=== PATIENT | female | born 1965 | race Caucasian/White ===

== ENCOUNTER 2021-12-04 22:29 | Emergency (ER) | payer OTHER, SELFPAY ==
[2021-12-04 22:41] VITALS: PULSE 97; RESP 20; TEMP 36.6; O2SAT 95; BMI 34.5
[2021-12-05] MEDS: ONDANSETRON ODT 4 MG TAB 8 MG PO (00:35)
[2021-12-05 01:41] VITALS: PULSE 92; RESP 18; O2SAT 98
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
== END 2021-12-05 02:14 ==
PROVIDERS: Emergency Provider Family Medicine; PCP Family Medicine
DX: M79.5 Residual foreign body in soft tissue (principal); W39.XXXA Discharge of firework, initial encounter
CPT/HCPCS: 96372; 99282; 99283; A9270

== ENCOUNTER 2022-02-20 10:16 | Outpatient (CLI) | payer OTHER, SELFPAY ==
--- NOTE | 2022-02-20 10:15 | CRLHL7_ITS ---
For Patients: As a result of the Century Cures Act, medical imaging exams and procedure reports are released immediately into your electronic medical record. You may view this report before your referring provider. If you have questions, please contact your health care provider. INDICATION : Cervical spinal canal stenosis. TECHNIQUE : Cervical spine MRI without contrast. The following sequences were obtained: Sagittal T1, T2 weighted and STIR sequences. Axial T2-weighted and gradient sequences. COMPARISON: COMPARISONCervical spine MRI from 07/11/2017. FINDINGS: Straightening of the typical cervical lordosis. No recent compression fracture or marrow replacing process. Posterior fossa josh cisterna magna. Cervical cord signal is normal. No extraspinal soft tissue abnormalities. Discs/Endplates: At C5-6, moderate disc height loss and disc desiccation. Mild disc degeneration elsewhere. Findings at individual levels as follows: Craniocervical junction: Alignment is maintained. C2-C3: Shallow disc osteophyte complex flattens the ventral thecal sac and contacts the ventral cord. Mild spinal canal stenosis. Bilateral uncovertebral and facet arthrosis contributes to mild bilateral foraminal stenosis. Right-sided facet joint effusion/diastasis and subchondral STIR hyperintensity, reflecting active degenerative synovitis bed C3-C4: 3 millimeters anterolisthesis. Shallow disc osteophyte complex flattens the ventral thecal sac with mild spinal canal stenosis. Bilateral uncovertebral and facet arthrosis with mild right and moderate left neural foraminal stenosis. C4-C5: 3 millimeters anterolisthesis. No spinal canal stenosis. Bilateral uncovertebral and facet arthrosis contributes to mild left and advanced right neural foraminal stenosis with impingement of the exiting right C5 nerve root. C5-C6: Shallow disc osteophyte complex flattens the ventral thecal sac without spinal canal stenosis. Bilateral uncovertebral and facet arthrosis contributes to moderate right and moderately advanced left neural foraminal stenosis with impingement of the exiting left C6 nerve root. C6-C7: Shallow disc osteophyte complex flattens the ventral thecal sac without spinal canal stenosis. Bilateral uncovertebral and facet arthrosis contributes to minimal right and mild left neural foraminal stenosis. C7-T1: No spinal canal or neural foraminal stenosis. Imaged upper thoracic levels: No spinal canal or neural foraminal stenosis. IMPRESSION: 1. At C2-3, new right-sided active degenerative synovitis. 2. At C3-4, moderate left neural foraminal stenosis. Stable. 3. At C4-5, advanced right neural foraminal stenosis with impingement of the exiting right C5 nerve root. Stable. 4. At C5-6, moderate right and moderately advanced left neural foraminal stenosis with impingement of the exiting left C6 nerve root. Stable. 5. No high-grade spinal canal stenosis or extrinsic cord deformity at any cervical level. Cervical cord signal is normal. Dictated by Rob Arce MD @ 02/20/2022 7:08:57 PM (Electronically Signed)
== END 2022-02-20 10:17 | disposition home or self-care (01) ==
LOC: MRI 10:19
PROVIDERS: PCP Family Medicine; Visit Provider Family Medicine
DX: M48.02 Spinal stenosis, cervical region (principal); M47.812 Spondylosis without myelopathy or radiculopathy, cervical region
CPT/HCPCS: 72141

== ENCOUNTER 2022-05-09 13:09 | Outpatient (CLI) | payer OTHER, SELFPAY ==
--- NOTE | 2022-05-09 13:00 | MR_ITS ---
[address] [address] Phone:?[phone] Fax:?[phone] Referring Physician Information: Breezy Hodgson M.D. [address] [facility] [address] Phone:?[phone] Fax:?[phone] Patient:Aleksandra Bernard D.O.B:?1965 Sex:?Female Phone:?[phone] [facility] MRN:?[id number] Exam Date:?05/09/2022 ? EXAM: MRI of the RIGHT KNEE, without contrast CLINICAL: Right knee pain. Evaluate meniscus. COMPARISONS: MRI 03/16/2020. TECHNICAL: MR sequences of the right knee: sagittals: PD, PDFS coronals: PD, T2FS axials: PD, PDFS SEDATION: None. CONTRAST: None. FINDINGS: Ligaments: ACL: Intact ACL anteromedial and posterolateral bundles, without sprain or tear. PCL: Intact PCL, without acute or chronic injury. MCL: Minimal soft tissue edema about the MCL. Minimal focal partial interstitial tearing of the anterior mid superficial MCL on axial series 4 image 20. MCL otherwise appears intact. LCL: Intact LCL, without injury. Posterolateral corner: Popliteus, biceps femoris, iliotibial band, and the popliteofibular ligament appear intact. Posteromedial corner: There is tendinosis and partial tearing of the distal semimembranosus tendon. The pes anserine tendons and posterior oblique ligament appear intact. Extensor mechanism: Patellar tendon: Intact, without tendinopathy. Quadriceps tendon: Intact, without tendinopathy. Retinacula: Medial and lateral retinacula are intact. Fat pads: Unremarkable infrapatellar Hoffa's, quadriceps and prefemoral fat pads. Patellofemoral joint: Patella: Patellar chondromalacia appears similar to prior exam. No new chondral defects. Trochlea: Trochlear chondromalacia appears similar to prior examination. No new chondral defects. Medial compartment: Medial meniscus: High-grade complex tearing/disruption of the posterior root fibers on sagittal series 9 image 17-18 and coronal series 8 image 23-24. This is new compared to prior exam. Degenerative signal changes noted within the posterior horn. There is approximately 2-3 mm of medial extrusion of peripheral body segment medial meniscus into the medial gutter. Medial cartilage: Chondromalacia involving the posterior nonweightbearing medial femoral condyle appears similar to prior exam. No new chondral defects. Lateral compartment: Lateral meniscus: No evidence of discrete meniscal tear or meniscal displacement. Lateral cartilage: No significant chondromalacia. Knee joint: Effusion: Small right knee effusion. Intra-articular bodies:?No convincing bodies identified. Popliteal cyst: None. Bones: No suspicious bone marrow signal alteration or fracture line. IMPRESSION: 1. High-grade complex tearing/disruption of the posterior root fibers medial meniscus with associated mild extrusion of the peripheral body segment medial meniscus into the medial gutter. 2. Minimal soft tissue edema about the MCL with minimal focal partial tearing of the anterior mid superficial MCL. 3. Tendinosis and partial tearing of the distal semimembranosus tendon. 4. Small joint effusion. JCZ Electronically signed on 05/10/2022 8:16:00 AM by Catracho Sellers D.O.
== END 2022-05-09 13:10 | disposition home or self-care (01) ==
LOC: MRI 13:09
PROVIDERS: PCP Family Medicine; Visit Provider Family Medicine
DX: M25.561 Pain in right knee (principal); M23.221 Derangement of posterior horn of medial meniscus due to old tear or injury, right knee; M25.461 Effusion, right knee; S83.411A Sprain of medial collateral ligament of right knee, initial encounter; S86.811A Strain of other muscle(s) and tendon(s) at lower leg level, right leg, initial encounter
CPT/HCPCS: 73721

== ENCOUNTER 2022-07-04 06:34 | Day surgery (SDC) | payer OTHER, SELFPAY ==
[2022-07-04] VITALS (12 sets, daily range): BP systolic 88–134; BP diastolic 64–81; PULSE 60–74; RESP 16; TEMP 36.2–36.9; O2SAT 94–100; BMI 36.1
--- NOTE | 2022-07-04 06:47 | SUR.PREOP ---
home covid negatve
[2022-07-04] MEDS: LACTATED RINGERS 1000 ML 1,000 ML 100 ML IV (07:05)
[2022-07-04] MEDS: SODIUM CHLORIDE 0.9 % (FLUSH) 10 ML SYRINGE IVF (07:05)
[2022-07-04] MEDS: CEFAZOLIN 2 GM in 0.9 % SODIUM CHLORIDE Mini-bag 100 ML IVPB (07:58)
--- NOTE | 2022-07-04 08:32 | PM.ORPRC ---
Procedure Note Date of procedure: 07/04/22 Procedure: PREOPERATIVE DIAGNOSIS: 1. Right knee medial meniscus tear POSTOPERATIVE DIAGNOSIS: 1. Right knee medial meniscus tear, posterior root region full-thickness radial tear with fibrosis 2. 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 Small region grade 4 chondromalacia trochlear groove and grade 3 chondromalacia patella median ridge PROCEDURE: 1. Right knee arthroscopic partial medial meniscectomy SURGEON: Dirk Tee M.D. SENIOR BUSINESS BROKER: Edgar Crowe PA-C. Of note, an news production assistant was critical for this case to aid in patient positioning, knee manipulation, instrument exchange, and closure. ANESTHESIA: Spinal EBL: 2ml TOURNIQUET: 25 minutes at 300 torr COMPLICATIONS: None evident INDICATIONS: The patient is a pleasant 57-year-old female who has experienced right knee pain particularly with any twisting or turning. Physical exam was concerning for medial meniscus tear, this was confirmed on MRI. Additionally, attempted nonoperative management has been tried, and failed. Thus, surgery was recommended. FINDINGS: Grade 3 chondromalacia broadly through the medial femoral condyle weight-bearing portion and further anterior. Small region grade 4 chondromalacia trochlear groove (3 x 6 mm) and grade 3 chondromalacia patella median ridge. No loose bodies evident. Posterior root medial meniscus tear with instability of the root and fibrotic tissue consistent with chronicity. DESCRIPTION OF PROCEDURE: After a thorough discussion of risks, benefits, and alternatives, the patient was brought to the operating room and placed upon the operating table. Induction of anesthesia was undertaken as previously noted. 2g iv Ancef was administered within 1 hr of incision preoperatively. Appropriate time-out was performed identifying proper patient, site, and procedure. The right lower extremity was prepped and draped in the appropriate sterile fashion using ChloraPrep. The limb was exsanguinated and tourniquet inflated. Anterolateral and anteromedial portals were established with an 11 blade, and a diagnostic arthroscopy was performed. This identified the findings as noted above. Following the diagnostic arthroscopy, and given the arthritic changes and the fibrotic nature/chronicity to the meniscus tear, a partial medial menisectomy was performed with the combination of basket forceps and a motorized shaver. Following this, the meniscus was re-probed and found to be stable. Approximately 25 % of the overall meniscus required resection. At this stage, the shaver was reinserted into the suprapatellar pouch and all remaining meniscal debris was evacuated. Instruments were removed, excess fluid was drained, and closure performed with 4-0 Monocryl with Steri-Strips. Dressings were applied, the tourniquet deflated, and the patient was awoken from anesthesia and transferred to the PACU in stable condition. PLAN: 1. Weightbear as tolerated operative extremity. Crutch / walker ambulation assistance PRN. 2. Ice, acetominophen and/or ibuprofen, and [place] for pain as needed. 3. Knee range of motion and quad sets/straight leg raise regularly 4. Follow up with PA visit in 1-2 weeks for a wound check and possibly to initiate physical therapy.
--- NOTE | 2022-07-04 08:33 | W.ANESCHARGE ---
Anesthesia Charges Start Date/Time Anesthesia Start Date: 07/04/22 Anesthesia Start Time: 07:43 Stop Date/Time Anesthesia Stop Date: 07/04/22 Anesthesia Stop Time: 08:47 Summary Emergency: No
[2022-07-04] MEDS: ROPIVACAINE 0.5% 30 ML 150 MG INJECTION (08:35)
--- NOTE | 2022-07-04 08:55 | W.ANESCHARGE ---
Anesthesia Charges Start Date/Time Anesthesia Start Date: 07/04/22 Anesthesia Start Time: 07:43 Stop Date/Time Anesthesia Stop Date: 07/04/22 Anesthesia Stop Time: 08:47 Summary Emergency: No
== END 2022-07-04 10:15 | disposition home or self-care (01) ==
PROVIDERS: PCP Family Medicine; Visit Provider Orthopaedic Surgery Sports Medicine
PROC: (CPT 29870; principal; 2022-07-04 07:45)
DX: S83.241A Other tear of medial meniscus, current injury, right knee, initial encounter (principal); M94.261 Chondromalacia, right knee
CPT/HCPCS: 29881; 01400; J0690; J1200; J2250; J2370; J2400; J2405; J2704; J2795; J3010; J7120

== ENCOUNTER 2022-08-09 10:30 | Outpatient (RCR) | payer OTHER, SELFPAY | END 2022-08-09 11:30 | disposition home or self-care (01) | PROVIDERS: PCP Family Medicine; Visit Provider Physician Assistant Surgical | DX: R26.89 Other abnormalities of gait and mobility (principal); M25.551 Pain in right hip; Z98.890 Other specified postprocedural states; M79.7 Fibromyalgia; Z51.89 Encounter for other specified aftercare; G62.9 Polyneuropathy, unspecified | CPT/HCPCS: 97110; 97112; 97140; 97162 ==

== ENCOUNTER 2022-11-06 06:37 | Outpatient (CLI) | payer OTHER, SELFPAY | END 2022-11-06 06:38 | disposition home or self-care (01) | LOC: RAD 06:38 | PROVIDERS: PCP Family Medicine; Visit Provider Family Medicine | DX: M25.551 Pain in right hip (principal); M25.851 Other specified joint disorders, right hip | CPT/HCPCS: 20610; 77002; J0702; J2250; J3010; Q9966 ==

== ENCOUNTER 2022-11-29 10:12 | Outpatient (CLI) | payer OTHER, SELFPAY ==
--- NOTE | 2022-11-29 10:15 | CRLHL7_ITS ---
For Patients: As a result of the Century Cures Act, medical imaging exams and procedure reports are released immediately into your electronic medical record. You may view this report before your referring provider. If you have questions, please contact your health care provider. INDICATION: Chronic heel pain. COMPARISON: March 04, 2019. TECHNIQUE: Axial and coronal PD and PD fat sat and sagittal T1 and STIR left ankle sequences. FINDINGS: Tendons: Periarticular tendons have normal caliber and signal with no subluxation or tenosynovitis. - Ligaments: Intact syndesmotic ligaments and lateral ankle ligaments. Normal deltoid. No sinus tarsus syndrome. - Ankle joint: Uniform cartilage. Physiologic fluid. No osteochondral injury. - Bones and soft tissues: Plantar fascia thickness and signal is within normal limits. No edema in the calcaneus. Anatomic alignment of the talonavicular and calcaneocuboid trocar joint. No soft tissue mass or fluid collection. IMPRESSION: No acute finding or significant chronic finding to account for heel pain. Dictated by Breezy Parrish MD @ 11/30/2022 3:33:10 PM (Electronically Signed)
== END 2022-11-29 10:13 | disposition home or self-care (01) ==
PROVIDERS: PCP Family Medicine; Visit Provider Family Medicine
DX: M72.2 Plantar fascial fibromatosis (principal); M79.672 Pain in left foot
CPT/HCPCS: 73721

== ENCOUNTER 2023-01-15 08:30 | Outpatient (RCR) | payer OTHER, SELFPAY | END 2023-05-15 23:59 | disposition home or self-care (01) | PROVIDERS: PCP Family Medicine; Visit Provider Family Medicine | DX: M77.02 Medial epicondylitis, left elbow (principal); M25.522 Pain in left elbow; Z51.89 Encounter for other specified aftercare | CPT/HCPCS: 97033; 97110; 97140; 97161; 97162 ==

== ENCOUNTER 2023-11-19 09:46 | Outpatient (CLI) | payer OTHER, SELFPAY ==
--- OUTSIDE RECORDS SUMMARY | 2023-11-19 09:48 | XMS_ITS | Clinical Summary ---
Author Organization [facility] Address [place], [place] [address] Care Team Providers Care Bindery Chief Name Role Phone Anca Gerard DO Primary Care Provider Allergies Active Allergy Reactions Criticality Noted Date Comments Adhesive Tape-Silicones Rash 02/14/2017 Diazepam Agitation 06/12/2013 Erythromycin GI Upset 08/22/2006 Hydromorphone Confusion 02/15/2017 Very sedating Lidocaine Itching Low 11/13/2018 Local swelling and itching after injection of lidocaine for local anesthetic for procedure. Nitrofurantoin Nausea And Vomiting 09/21/2016 Penicillins Hives 08/22/2006 Tolerated keflex Oxycodone-Acetaminophen Nausea And Vomiting Tramadol Nausea And Vomiting 06/12/2013 Trazodone Insomnia 06/12/2013 Sertraline Nausea Only 08/22/2006 Medications Medication Sig Dispensed Refills Start Date End Date Status cyclobenzaprine (FLEXERIL) 10 mg tabletIndications: Lumbosacral spondylosis without myelopathy Take 1 tablet by mouth 3 times daily if needed for Muscle Spasm. 60 tablet 9 Active calcium carbonate-vitamin D3, 600 mg-400 unit, 600 mg(1,500mg) -400 unit tablet Take 1 tablet by mouth 2 times daily with meals. 200 tablet 4 9 Active CaneIndications:Sara mbar radicular pain,Chronic pain of right knee Cane for supportive walking, length of use 99 months 1 Device 9 Active nebulizer accessories kitIndications:Exa cerbation of asthma, unspecified asthma severity, unspecified whether persistent For home use. Length of need: as needed going forward 1 Kit 0 Active ammonium lactate 12% topical (LACHYDRIN) 12 % lotionIndications: Dry skin Apply topically to affected area(s) 2 times daily. 450 g 0 Active ondansetron (Zofran ODT) 4 mg disintegrating tabletIndications: Nausea Place 1 Tablet (4 mg) on the tongue every 8 hours if needed for Nausea/Vomiting. 30 Tablet 1 Active estradioL (Estrace) 0.01% (0.1 mg/g) vaginal creamIndications:R ecurrent UTI (urinary tract infection) Insert 0.5 g into the vagina at bedtime. Insert 0.5g of cream into vaginal introitus at bedtime nightly for two weeks followed by twice weekly 42.5 g 1 2 Active clotrimazole (LOTRIMIN) 1 % creamIndications:Y east infection of the skin APPLY TO AFFECTED AREAS BY TOPICAL ROUTE TWICE DAILY NEEDED 135 g 1 2 Active durable medical equipment (DME)Indications:P ain of meniscus of right knee,Effusion of right knee Reddie Brace, [phone] 1 Each 3 Active magnesium oxide,aspartate,ci tr 400 mg magnesium cap Take 400 mg by mouth. 0 3 Active durable medical equipment (DME)Indications:P lantar fasciitis of left foot,Chronic pain of left heel Airselect, Standard, medium [id number] Length of use: 99 months 0 3 Active LORazepam (ATIVAN) 1 mg tabletIndications: Anxiety due to invasive procedure Take 1 Tablet (1 mg) by mouth one time for 1 dose. 1 Tablet 3 Active cholecalciferol (VITAMIN D3) 2,000 unit capsuleIndications :Lumbar radicular pain TAKE ONE CAPSULE BY MOUTH ONE TIME DAILY 90 Capsule 1 3 Active albuterol HFA (Ventolin HFA) 90 mcg/actuation inhalerIndications :Mild intermittent asthma without complication Inhale 2 Puffs by mouth 4 times daily if needed for Wheezing. 18 g 1 3 Active albuterol (PROVENTIL) 0.083 % neb solutionIndication s:Wheeze Inhale 3 mL (2.5 mg) via a nebulizer every 4 hours if needed for Wheezing. 360 mL 1 3 Active cyanocobalamin (VITAMIN B12) 1,000 mcg tabletIndications: Small fiber neuropathy TAKE ONE TABLET BY MOUTH ONE TIME DAILY 90 Tablet 2 4 Active benzonatate (Tessalon Perles) 100 mg capsuleIndications :Bronchitis with bronchospasm Take 1 Capsule (100 mg) by mouth 3 times daily if needed for Cough. 30 Capsule 4 Active tiZANidine (ZANAFLEX) 4 mg tabletIndications: Lumbar radicular pain TAKE ONE TABLET BY MOUTH EVERY SIX HOURS NEEDED FOR MUSCLE SPASM 180 Tablet 4 Active pregabalin (LYRICA) 300 mg capsuleIndications :Small fiber neuropathy TAKE ONE CAPSULE BY MOUTH TWICE DAILY 60 Capsule 5 4 Active polyethylene glycoL (MIRALAX) 17 gram/scoop powderIndications: Chronic constipation Mix 1 scoop (17 g) in liquid then take by mouth once daily if needed for Constipation. 1530 g 1 4 Active HYDROcodone-acetam inophen (5-325 mg/tablet)Indicati ons:DDD (degenerative disc disease), lumbar,Lumbosacral spondylosis without myelopathy,Chronic pain disorder,Controlle d substance agreement signed Take 1 Tablet by mouth 3 times daily if needed for Pain. 90 Tablet 4 Active celecoxib (CELEBREX) 100 mg capsuleIndications :Trigger finger of right thumb,Chronic pain disorder,DDD (degenerative disc disease), lumbar Take 1 Capsule (100 mg) by mouth two times daily with meals. 60 Capsule 1 4 Active omeprazole (PRILOSEC) 20 mg Delayed-Release capsuleIndications :Gastritis, presence of bleeding unspecified, unspecified chronicity, unspecified gastritis type Take 1 Capsule (20 mg) by mouth two times daily before meals. 180 Capsule 1 4 Active blood-glucose meterIndications:N ew onset type 2 diabetes mellitus (HC) Dispense meter covered by pts insurance. 1 Each 4 Active blood sugar diagnostic (Blood Glucose Test) stripIndications:N ew onset type 2 diabetes mellitus (HC) Test 2 times per day. 100 Each 12 4 Active lancetsIndications :New onset type 2 diabetes mellitus (HC) As directed. Test 2 times per day. 100 Each 12 4 Active semaglutide (Ozempic) 2 mg/3 mL penIndications:New onset type 2 diabetes mellitus (HC) Inject 0.375 mL (0.25 mg) subcutaneous once weekly for 28 days, THEN 0.75 mL (0.5 mg) once weekly for 28 days. 6 mL 4 12/09/19 24 Active semaglutide (OZEMPIC) 1 mg/dose (4 mg/3 mL) penIndications:New onset type 2 diabetes mellitus (HC) Inject 1 mg subcutaneous once weekly for 28 days. 3 mL 4 01/06/20 24 Active diclofenac 1.3 % (FLECTOR) 1.3 % patchIndications:C hronic pain disorder,Small fiber neuropathy,Right hip impingement syndrome,Chronic right hip pain Apply 1 Patch on dry, clean, hairless skin 2 times daily if needed for Pain. Patient failed injection, naproxen and meloxicam with GASTROINTESTINAL bleed. SMK 60 Patch 11 4 Active predniSONE (DELTASONE) 20 mg tabletIndications: Right hand pain Take 1 Tablet (20 mg) by mouth two times daily with meals. 10 Tablet 4 Active azithromycin (Zithromax Z-Lawrence) 250 mg tabletIndications: Acute non-recurrent frontal sinusitis Take 500 mg (2 tabs) by mouth on day 1, then 250 mg (1 tab) daily for days 2-5. 6 Tablet 4 11/08/19 24 Discontin ued(*Med complete/ Regimen complete/ Level of care change) Active Problems Problem Noted Date Diagnosed Date Acute gastric ulcer without hemorrhage or perfor ation 03/17/2019 Overview: EGD 03/2019 gastric ulcer due to Nsdaids, No repeat EGD needed Alcohol use disorder, mild, in sustained remissi on 11/13/2018 Chronic bilateral low back pain without sciatica 11/07/2018 Migraine without aura and wi thout status migrainosus, not intractable 09/17/2018 DDD (degenerative disc disease), lumbar 09/18/19 19 Lumbar spondylosis 09/17/2018 Arthropathy of cervical facet joint 09/17/2018 Controlled substance agreement signed 10/21/2017 Overview: Prescriber: Dr. Breezy Hodgson, [facility] Anca Garrettkonrad, DO Ok to fill at same amount/dose/frequency in my absence. Controlled substance agreement: 10/21/17 resigned. [employer] query on 04/17/18 was acceptable. Last UDS on 10/21/17 status post right hip arthro scopic labral repair with femoral and acetabular osteoplasty procedure on 02/15/[address] Hatch. 02/26/2017 Obesity (BMI 30-39.9) 02/11/2017 Tobacco use disorder 09/23/2016 Small fiber neuropathy 04/05/2016 Overview: Confirmed on muscle biopsy through [facility]. Incontinence 06/15/2015 Somatization disorder 06/13/2013 Mood disorder due to a general medical condition 06/12/2013 Chronic pain disorder 06/12/2013 Recurrent major depressive disorder, in partial remission 06/12/2013 Adjustment disorder with depressed mood 06/12/19 14 Insomnia 06/12/2013 Plantar fasciitis 06/12/2013 CTS (carpal tunnel syndrome) 06/12/2013 Lumbar facet arthropathy 01/18/2010 Fibromyalgia 01/18/2010 Unspecified asthma(493.90) 08/22/2006 Overview: Summer Other acne 08/22/2006 Tear of right acetabular labrum Resolved Problems Problem Noted Date Diagnosed Date Resolved Date Abnormal maternal glucose to lerance, complicating , childbirth, or the puerperium, unspecified as to episode of care 08/22/2006 01/15/2015 Encounters Date Type Department Care Team Description 11/08/2023 8:20 AM CDT Office Visit [facility] [address] [facility] [address] Breezy Hodgson MD Musculoskeletal Problem (Right Trigger Thumb) 11/08/2023 Travel 10/14/2023 1:20 PM CDT Office Visit [facility] [address] [address] Breezy Hodgson MD Musculoskeletal Problem (Consult right trigger thumb/Follow up back pain/Follow up right hip) 10/14/2023 9:50 AM CDT Office Visit [facility] [address] [place] [address] Anca Gerard DO Diabetes 10/14/2023 Telephone [facility] [address] [place] [address] Breezy Hodgson MD FORMULARY 10/14/2023 Orders Only [facility] [address] [place] [address] Chiara Donaldson PA <No scans attached> 10/14/2023 Travel 10/10/2023 Orders Only [facility] [address] [place] [address] Anca Gerard DO <No scans attached> 10/09/[address] [phone] Kelli Bahena, AMIRAH Referral (/) 10/08/2023 Telephone [facility] [address] [place] [address] Anca Gerard DO Lab (hematology request. factor v/) 10/04/2023 Orders Only [facility] [address] [place] [address] Anca Gerard DO <No scans attached> 10/02/2023 3:55 PM CDT Office Visit [facility] [address] [place] [address] Anca Gerard DO Back Pain; Medication Management (declined voltaren patches/can't take meloxicam) 10/02/2023 Travel 09/30/2023 Refill [facility] [address] [place] [address] Anca Gerard DO Refill Request (Omeprazole) 09/30/2023 Orders Only [facility] [address] [place] [address] Anca Gerard DO <No scans attached> 09/27/2023 2:30 PM CDT Orders Only [facility] [address] [place] [address] Lab, [place] [facility] 09/27/2023 2:15 PM CDT Ancillary Procedure [facility] [address] [place] [address] 09/27/2023 1:40 PM CDT Office Visit [facility] [address] [place] [address] Chiara Donaldson PA Concerns 09/27/2023 Travel 09/26/2023 Refill [facility] [address] [place] [address] Anca Gerard DO Refill Request (NORCO ORAL TABLET 5-325 MG) 09/06/2023 Refill [facility] [address] [place] [address] Anca Gerard DO Refill Request (Polyethylene Glycol 3350 Oral Powder 17gm/scoop) 09/05/2023 Telephone [facility] [address] [place] [address] Breezy Hodgson MD Prior Authorization (diclofenac 1.3 % (FLECTOR) 1.3 % patch (DENIED)) 08/28/2023 Refill [facility] [address] [place] [address] Breezy Hodgson MD Refill Request (Pregabalin, Diclofenac 1.3 %) from Last 3 Months Immunizations Name Administration Dates Next Due Td (Age >=7 Years) 09/25/2017 Td, Preservative Free (age >= 7 Years) 8 Family History Medical History Relation Name Comments Alcohol/Drug Brother 2 GI Disease Brother 3 diverticulitis Allergies Daughter 2 Asthma Daughter 3 Psychiatric illness Daughter 4 Borderli ne Personality Disorder Arthritis Father Diabetes Father GI Disease Father diverticulitis Heart Disease Father Asthma Grandchild 2 Cancer-breast Maternal Aunt Heart Disease Maternal Grandfather Hypertension Mother Other Mother migaines Psychiatric illness Mother bipolar Allergies Son 2 Psychiatric illness Son 3 Tourette 's Relation Name Status Comments Brother 1 Alive x2 Brother 2 Brother 3 Daughter 1 Alive x3 Daughter 2 Daughter 3 Daughter 4 Father Alive Grandchild 1 Alive x4 Grandchild 2 Maternal Aunt Maternal Grandfather Maternal Grandmother Mother Alive Paternal Grandfather Paternal Grandmother Son 1 Alive x2 Son 2 Son 3 Social History Tobacco Use Types Packs/Day Years Used Date Smoking Tobacco: Every Day Cigarettes 1 42.5 Started: 1981 Smokeless Tobacco: Never Tobacco Cessation:Ready to Q uit: No; Counseling Given: No Alcohol Use Standard Drinks/Week Comments Not Currently 0 (1 standard drink = 0.6 oz pur e alcohol) rare PHQ-2 Answer Date Recorded PHQ-2 TOTAL SCORE 1 04/29/2023 Social Connections Answer Date Recorded Frequency of Communication with Friends and Fami ly 0 06/07/2023 Financial Resource Strain Answer Date R ecorded Difficulty of Paying Living Expenses 3 06/07/2023 Difficulty of Paying Living Expenses Not on file 06/07/2023 Food Insecurity Answer Date Recorded Worried About Running Out of Food in the Last Ye ar 1 06/07/2023 Transportation Needs Answer Date Record ed Lack of Transportation (Medical) 1 06/07/2023 Housing Stability Answer Date Recorded Unable to Pay for Housing in the Last Year 1 06/07/2023 Sex and Gender Information Value Date Recorded Sex Assigned at Not on file Gender Identity Not on file Sexual Orientation Not on file Obstetrics History Para Term AB IAB SAB Ectopic Multiple Livin g Live Births 6 5 5 5 Date Outcome GA Total Labor Labor/2nd/3rd Weight Sex Type Anes PTL Linda A1 A5 Name Clin Term Term Term Term Term Last Filed Vital Signs Vital Sign Reading Time Taken Comments Blood Pressure 125/85 11/08/2023 8:30 AM CDT Pulse 81 11/08/2023 8:30 AM CDT Temperature 36.4 ??C (97.6 ??F) 11/08/2023 8:30 AM CD T Respiratory Rate 16 04/02/2022 8:52 AM CDT Oxygen Saturation 96% 11/08/2023 8:30 AM CDT Inhaled Oxygen Concentration - - Weight 93.1 kg (205 lb 4.8 oz) 11/08/2023 8:30 A M CDT Height 159.2 cm (5' 2.68) 04/29/2023 10:07 AM Joel IRBY Body Mass Index 36.74 04/29/2023 10:07 AM JOB SPOTTER Plan of Treatment Upcoming Encounters Date Type Department Care Team (Late st Contact Info) Description 11/19/2023 10:00 AM CDT Office Visit [facility] [address] [place] [address] Breezy Hodgson MD [address] [place] [address] Arrived 11/26/2023 10:40 AM CDT [place] [facility] [id number] [place] [address] Kayla Samayoa, KAYLEE [address] [place] [address] 12/10/2023 10:00 AM CDT Patient Outreach [facility] [address] [place] [address] Cherelle Rojas RN [address] [place] [address] 01/15/2024 1:00 PM CDT Office Visit [facility] [address] [place] [address] Breezy Hodgson MD [address] [place] [address] Health Maintenance Due Date Last Done Comments Pneumococcal series for age 6-64 (1 of 2 - PCV) 1971 Tdap 1976 HIV for age 15-65 1980 Hepatitis C screening for ag e 18-79 1983 Hepatitis B series for Diabe celestino (1 of 3 - 19+ 3-dose series) [address] (for lung CA) ag e 50-80 2015 Zoster (shingles) series for age 50+ (1 of 2) 2015 Mammogram for age 45-75 03/24/2020 03/24/20 19, 09/20/2016, 04/01/2015 COVID-19 vaccine series ( season) 2023 Influenza for age 50-64 02/02/2024 BMI (ht and wt on same day) for age 18+ 04/29/2024 04/29/2023, 01/22/2022, 12/20/2020, Additional history exists Depression screening for age 12+ 04/29/2024 04/29/2023, 04/03/2022, 09/25/2021, Additional history exists Colonoscopy through age 75 03/03/2025 03/03/2015 Tetanus booster 09/26/2027 09/25/2017, 09/25/2017 Lipids for age 45-75 10/13/2028 10/14/2023, 03/25/2020, 07/30/2018, Additional history exists Medical Devices Implanted Type Area Lamination Inspector Device Identifier Shelf Expiration Date Model / Serial / Lot Sling Pelvic Gynecare Retropubic Obturator Laser Cut Contine - [id number] Implanted:Qty: 1 on 01/06/2016 by Michael Castle MD at [facility] [employer] H / Uro [id number] / / [id number] Ancr Georgi Villareal Knotless - [id number] Implanted:Qty: 1 on 02/15/2017 by Arnaud Hatch MD at [facility] Right: Hip [employer] 01/13/2018 [id number] / / [id number] Ancr Sut Manuel Ss Knotless - [id number] Implanted:Qty: 1 on 02/15/2017 by Arnaud Hatch MD at [facility] Right: Hip [employer] 05/22/2018 [id number] / / [id number] Procedures Procedure Name Priority Date/Time Associated Diagnosis Comments LIPID PANEL W REFLEX MEASURED LDL Routine 10/14/2023 10:58 AM CDT New onset type 2 diabetes mellitus (HC) BASIC METABOLIC PANEL Routine 10/14/2023 10:58 AM CDT New onset type 2 diabetes mellitus (HC) FACTOR V LEIDEN MUTATION (EVALUATE THROMBOPHILIA) Routine 10/14/2023 10:58 AM CDT Protein C deficiency (HC) URINE CULTURE Add On 10/14/2023 10:04 AM CDT Lower urinary tract symptoms (LUTS) URINALYSIS MICROSCOPIC Routine 10/14/2023 10:04 AM CDT Lower urinary tract symptoms (LUTS) URINE ALBUMIN TO CREATININE RATIO, RANDOM Routine 10/14/2023 10:04 AM CDT New onset type 2 diabetes mellitus (HC) UA W/ SEDIMENT EXAM REFLEXED PER CRITERIA Routine 10/14/2023 10:04 AM CDT Lower urinary tract symptoms (LUTS) CBC WITH AUTO DIFFERENTIAL Routine 10/02/2023 4:41 PM CDT Gastritis, presence of bleeding unspecified, unspecified chronicity, unspecified gastritis type Chronic pain disorder Acute gastric ulcer without hemorrhage or perforation CBC WITH AUTO DIFFERENTIAL Routine 10/02/2023 4:41 PM CDT Gastritis, presence of bleeding unspecified, unspecified chronicity, unspecified gastritis type Chronic pain disorder Acute gastric ulcer without hemorrhage or perforation SEDIMENTATION RATE Routine 10/02/2023 4: 41 PM CDT Trigger finger of right thumb Chronic pain disorder HEMOGLOBIN A1C SCREENING Routine 10/02/2023 4:41 PM CDT Prediabetes XR FINGER 3 VIEWS RIGHT Routine 09/27/2023 2:35 PM CDT Trigger finger of right thumb [facility] MISCELLANEOUS SENDOUT Routine 09/27/2023 2:30 PM CDT Family history of protein C deficiency MISCELLANEOUS SEND OUT Routine 09/27/2023 2:30 PM CDT Family history of protein C deficiency URINE CULTURE Add On 09/27/2023 2:26 PM CDT UTI (urinary tract infection), uncomplicated URINALYSIS MICROSCOPIC Routine 09/27/2023 2:26 PM CDT Lower urinary tract symptoms (LUTS) UA W/ SEDIMENT EXAM REFLEXED PER CRITERIA Routine 09/27/2023 2:26 PM CDT Lower urinary tract symptoms (LUTS) XR MAMMO BILAT SCREENING Routine 03/24/2019 12:00 AM CDT Screening mammogram, encounter for SCAN-COLONOSCOPY 03/03/2015 12:0 0 AM CDT from Last 3 Months or Most Recently Relevant to Health Maintenance Results * (ABNORMAL) LIPID PANEL W REFLEX MEASURED LDL (10/14/2023 10:58 AM CDT) CHOLESTEROL,TOTAL 281(H) 100 - 199 mg/dL 10/14/2023 6:24 PM CDT [facility] Comment: Cholesterol, Total Reference Ranges Desirable <200 mg/dL Borderline 200-239 mg/dL High >=240 mg/dL TRIGLYCERIDES 105 <150 mg/dL 10/14/2023 6:24 PM CDT [facility] HDL CHOLESTEROL 56 >40 mg/dL 6:24 PM CDT [facility] NON-HDL CHOLESTEROL 225(H) <145 mg/dl 10/14/2023 6:24 PM CDT [facility] CHOL/HDL RATIO 5.02(H) <4.50 10/14/2023 6:24 PM CDT [facility] LDL CHOLESTEROL 204(H) <=130 mg/dL 10/14/2023 6:24 PM CDT [facility] VLDL CHOLESTEROL 21 <=30 mg/dL 10/14/2023 6:24 PM CDT [facility] PROVIDER ORDERED STATUS RANDOM 10/14/2023 6:24 PM CDT [facility] Blood BLOOD SPECIMEN / Unknown Butterfly / Unknown 10/14/2023 10:58 AM CDT 10/14/2023 10:58 AM CDT Anca Gerard DO CHEMISTRY [facility] [address] [place] [address], [place] * FACTOR V LEIDEN MUTATION (EVALUATE THROMBOPHILIA) (10/14/2023 10:58 AM CDT) Pathologist [facility] FACTOR V LEIDEN Mutation not detected Mutation not detected 10/17/2023 4:07 PM CDT [facility] INTERPRETATION Patient does not carry the Leiden ([id number]) mutation on either copy of the Factor V (F5) gene. 10/17/2023 4:07 PM CDT [facility] Blood BLOOD SPECIMEN / Unknown Butterfly / Unknown 10/14/2023 10:58 AM CDT 10/14/2023 10:58 AM CDT Narrative [facility] - 10/17/2023 4:07 PM CDT Method: abiola?? Factor II and Factor V Test Anca Gerard DO LABORATORY [facility] [address] [place] [address], [place] * (ABNORMAL) BASIC METABOLIC PANEL [61070.0] (10/14/2023 10:58 AM CDT) Pathologist [facility] SODIUM 141 136 - 145 mmol/L 10/14/2023 6:24 PM CDT [facility] POTASSIUM 4.6 3.5 - 5.1 mmol/L 10/14/2023 6:24 PM CDT [facility] CHLORIDE 105 98 - 107 mmol/L 10/14/2023 6:24 PM CDT [facility] CO2,TOTAL 22 22 - 29 mmol/L 10/14/2023 6:24 PM CDT [facility] ANION GAP 14 5 - 18 10/14/2023 6:24 PM CDT [facility] GLUCOSE 166(H) 70 - 99 mg/dL 10/14/2023 6:24 PM CDT [facility] CALCIUM 9.8 8.6 - 10.0 mg/dL 10/14/2023 6:24 PM CDT [facility] BUN 21(H) 6 - 20 mg/dL 10/14/2023 6:24 PM T [facility] CREATININE 0.75 0.50 - 0.90 mg/dL 10/14/2023 6:24 PM CDT [facility] BUN/CREAT RATIO 28(H) 10 - 20 6:24 PM T [facility] eGFR >90 >90 mL/min/1.7 3m2 10/14/2023 6:24 PM T [facility] Comment:As of 2021, eG FR is calculated by the CKD-EPI creatinine equation without race adjustment. ??eGFR can be influenced by muscle mass, exercise, and diet. ??The reported eGFR is an estimation only and is only applicable if the renal function is stable. Blood BLOOD SPECIMEN / Unknown Butterfly / Unknown 10/14/2023 10:58 AM CDT 10/14/2023 10:58 AM CDT Anca Gerard DO CHEMISTRY [facility] [address] [place] [address], * URINALYSIS MICROSCOPIC (10/14/2023 10:04 AM CDT) Only the most recent of2 resultswithin the time period is included. RBC None Seen 0-2, None Seen /HPF 10/14/2023 10:11 AM CDT [facility] [email or web address]] WBC 3-5 0-2, 3-5, None Seen /HPF 10/14/2023 10:11 AM CDT [facility] [email or web address]] BACTERIA Few None Seen, Rare, Few Bacteria/ HPF 10/14/2023 10:11 AM CDT [facility] [email or web address]] EPITHELIAL CELLS Few None Seen, Few Epi/HPF 10/14/2023 10:11 AM CDT [facility] [email or web address]] Urine URINE SPECIMEN / Unknown Non-Blood / Unknown 10/14/2023 10:04 AM CDT 10/14/2023 10:04 AM CDT Chiara HUGHES URINE [facility] [[email or web address]] [address] [place] [address], * URINE CULTURE (10/14/2023 10:04 AM CDT) Only the most recent of2 resultswithin the time period is included. CULTURE <10,000 CFU/mL multiple organisms 10/15/2023 1:30 PM CDT [facility] Urine URINE SPECIMEN / Unknown Non-Blood / Unknown 10/14/2023 10:04 AM CDT 10/14/2023 10:04 AM CDT Chiara HUGHES MICROBIOLOGY [facility] [address] [place] [address], * URINE ALBUMIN TO CREATININE RATIO, RANDOM (10/14/2023 10:04 AM CDT) ALB RAND URINE <12.0 mg/L 10/15/2023 1:05 AM CDT [facility] CREATININE,URINE 1.23 g/L 10/15/19 24 1:05 AM CDT [facility] ALBUMIN TO CREATININE RATIO,RAND UR 10/15/2023 1:05 AM CDT [facility] Comment:Urine Albumin below measurement range, unable to calculate. Urine URINE SPECIMEN / Unknown Non-Blood / Unknown 10/14/2023 10:04 AM CDT 10/14/2023 10:04 AM CDT Narrative [facility] - 10/15/2023 1:05 AM CDT If Albumin to Creatinine Ratio is elevated, consider the following: ? Elevations seen with incipient nephropathy associated ?? with diabetes mellitus or hypertension. Stress, exercise,hematuria, ?? and urinary tract infection may also produce elevated results. If clinically indicated, confirm with ?24 Hour Albumin to Creatinine Ratio. ?? Anca Gerard DO URINE [facility] [address] [place] [address], [place] * (ABNORMAL) UA W/ SEDIMENT EXAM REFLEXED PER CRITERIA (10/14/2023 10:04 AM CDT) Only the most recent of2 resultswithin the time period is included. COLOR Yellow Yellow Color 10/14/2023 10:10 AM CDT [facility] [[email or web address] CLARITY Clear Clear Clarity 10/14/2023 10:10 AM CDT [facility] [[email or web address]] SPECIFIC GRAVITY,URINE >=1.030(A) 1.010, 1.015, 1.020, 1.025 10/14/2023 10:10 AM CDT [facility] [[email or web address]] PH,URINE 5.5 6.0, 7.0, 8.0, 5.5, 6.5, 7.5, 8.5 10/14/2023 10:10 AM CDT [facility] [[email or web address]] UROBILINOGEN, QUALITATIVE Normal Normal EU/dl 10/14/2023 10:10 AM CDT [facility] [email or web address]] PROTEIN, URINE Negative Negative mg/dL 10/14/2023 10:10 AM CDT [facility] [[email or web address]] GLUCOSE, URINE Negative Negative mg/dL 10/14/2023 10:10 AM CDT [facility] [[email or web address]] KETONES,URINE Negative Negative mg/dL 10/14/2023 10:10 AM CDT [facility] [[email or web address]] BILIRUBIN,URI NE Negative Negative 10/14/2023 10:10 AM CDT [facility] [[email or web address]] OCCULT BLOOD,URINE Negative Negative 10/14/2023 10:10 AM CDT [facility] [[email or web address]] NITRITE Negative Negative 10/14/2023 10:10 AM CDT [facility] [email or web address]] LEUKOCYTE ESTERASE Trace(A) Negative 10/14/2023 10:10 AM CDT [facility] [email or web address]] Urine URINE SPECIMEN / Unknown Non-Blood / Unknown 10/14/2023 10:04 AM CDT 10/14/2023 10:04 AM CDT Chiara HUGHES URINE [facility] [[email or web address]] [address] [place] [address], * SEDIMENTATION RATE (10/02/2023 4:41 PM CDT) SEDIMENTATION RATE 2 <30 mm/hr 2023 12:54 PM CDT [facility] Blood BLOOD SPECIMEN / Unknown Venipuncture / Unknown 10/02/2023 4:41 PM CDT 10/02/2023 4:44 PM CDT Anca Gerard DO HEMATOLOGY [facility] [address] [place] [id number], * CBC WITH AUTO DIFFERENTIAL (10/02/2023 4:41 PM CDT) WHITE BLOOD COUNT 4.8 4.5 - 11.0 thou/cu mm 10/02/2023 4:49 PM CDT [facility] [email or web address]] RED BLOOD COUNT 4.74 4.00 - 5.20 mil/cu mm 10/02/2023 4:49 PM CDT [facility] [email or web address]] HEMOGLOBIN 14.3 12.0 - 16.0 g/dL 10/02/2023 4:49 PM CDT [facility] [[email or web address]] HEMATOCRIT 41.3 33.0 - 51.0 % 10/02/2023 4:49 PM CDT [facility] [[email or web address]] MCV 87 80 - 100 fL 10/02/2023 4:49 PM CDT [facility] [[email or web address]] MCH 30.2 26.0 - 34.0 pg 10/02/2023 4:49 PM CDT [facility] [[email or web address]] MCHC 34.6 32.0 - 36.0 g/dL 10/02/2023 4:49 PM CDT [facility] [[email or web address]] RDW 12.8 11.5 - 15.5 % 10/02/2023 4:49 PM CDT [facility] [[email or web address]] PLATELET COUNT 274 140 - 440 thou/cu mm 10/02/2023 4:49 PM CDT [facility] [[email or web address]] MPV 8.8 6.5 - 11.0 fL 10/02/2023 4:49 PM CDT [facility] [[email or web address]] % NEUT 47.2 % 10/02/2023 4:49 PM CDT [facility] [[email or web address]] % LYMPH 40.6 % 10/02/2023 4:49 PM CDT [facility] [[email or web address]] % MONO 9.1 % 10/02/2023 4:49 PM CDT [facility] [[email or web address]] % EOS 2.7 % 10/02/2023 4:49 PM CDT [facility] [[email or web address]] % BASO 0.4 % 10/02/2023 4:49 PM CDT [facility] [[email or web address]] ABSOLUTE NEUTROPHILS 2.2 1.7 - 7.0 thou/cu mm 10/02/2023 4:49 PM CDT [facility] [[email or web address]] ABSOLUTE LYMPHOCYTES 1.9 0.9 - 2.9 thou/cu mm 10/02/2023 4:49 PM CDT [facility] [[email or web address]] ABSOLUTE MONOCYTES 0.4 <0.9 thou/cu mm 10/02/2023 4:49 PM CDT [facility] [[email or web address]] ABSOLUTE EOSINOPHILS 0.1 <0.5 thou/cu mm 10/02/2023 4:49 PM CDT [facility] [[email or web address]] ABSOLUTE BASOPHILS 0.0 <0.3 thou/cu mm 10/02/2023 4:49 PM CDT [facility] [[email or web address]] Blood BLOOD SPECIMEN / Unknown Venipuncture / Unknown 10/02/2023 4:41 PM CDT 10/02/2023 4:44 PM CDT Anca Gerard DO HEMATOLOGY [facility] [[email or web address]] [address] [place] [address], [place] [phone] * (ABNORMAL) HEMOGLOBIN A1C SCREENING (10/02/2023 4:41 PM CDT) HEMOGLOBIN A1C SCREENING 6.9(H) <=6.4 % 10/04/2023 12:11 PM CDT [facility] Blood BLOOD SPECIMEN / Unknown Venipuncture / Unknown 10/02/2023 4:41 PM CDT 10/02/2023 4:44 PM CDT Narrative [facility] - 10/04/2023 12:11 PM CDT ? (<5.7%) ?Normal ? (5.7% to 6.4%) ? Indicates prediabetes ? (>=6.5%) ? Confirms diabetes Falsely low levels may be seen with: Recent Transfusion, Recent Significant Blood Loss, Hemolytic Diseases, or Falsely elevated levels may be seen with: Untreated Anemias, Splenectomy Anca Gerard DO CHEMISTRY [facility] [address] [place] [address], [place] * XR FINGER 3 VIEWS RIGHT (09/27/2023 2:35 PM CDT) Anatomical Region Laterality Modality Finger Computed Radiogr aphy 09/28/2023 9:49 PM CDT Impressions 09/28/2023 9:49 PM CDT Minimal joint space loss at the carpometacarpal joint. Soft tissues are unremarkable. No acute or suspicious bone lesion. Dictated by Ray Cervantes MD @ 09/28/2023 9:49:31 PM (Electronically Signed) Narrative 09/28/2023 9:49 PM CDT For Patients: ??As a result of the Century Cures Act, medical imaging exams and procedure reports are released immediately into your electronic medical record. ??You may view this report before your referring provider. ??If you have questions, please contact your health care provider. INDICATION: Pain. Trigger finger TECHNIQUE: Right hand 1st digit. Procedure Note Ray Cervantes MD - 09/28/2023 For Patients: As a result of the Cures Act, medical imagingexams and procedure reports are released immediately into your electronicmedical record. You may view this report before your referring provider.If you have questions, please contact your health care provider. INDICATION: Pain. Trigger finger TECHNIQUE: Right hand 1st digit. IMPRESSION: Minimal joint space loss at the carpometacarpal joint. Soft tissues are unremarkable. No acute or suspicious bone lesion. Dictated by Ray Cervantes MD @ 09/28/2023 9:49:31 PM (Electronically Signed) Chiara HUGHES [facility] G * [facility] BackOpsSOUTHVIEW MEDICAL CENTERANEOUS SENDOUT (09/27/2023 2:30 PM CDT) [facility] COM[facility] 10/03/2023 4:08 PM CDT [facility] Comment: Test Ordered: [id number] Protein C Antigen Protein C Antigen ?51 ?[L ] % ?01 ? Reference Range: 60-150 ? A deficiency of protein C (PC), either congenital or acquired, increases the risk of thromboembolism. Congenital deficiencies of PC are very rare; acquired PC deficiency is much more common. PC levels can be transiently diminished after an acute thrombotic event. Oral anticoagulant therapy with warfarin will lower PC levels as well as vitamin K deficiency. Acquired deficiency can also occur in individuals with disseminated intravascular coagulation (DIC), sepsis, severe liver disease, nephrotic syndrome, and in inflammatory bowel disease. Levels may be spuriously decreased in individuals with Factor V Leiden. Drug therapy with L-asparaginse, fluorouracil, methotrexate, cyclophosphamide or tamoxifen can also reduce PC levels. It has been suggested that repeat blood sampling and testing after ruling out acquired causes of deficiency should be performed before the patient is diagnosed with congenital Protein C deficiency. Other (Other) Non-Blood / Unknown 09/27/2023 2:30 PM CDT 09/30/2023 8:53 AM CDT Narrative [facility] ([facility]) - 10/03/2023 4:08 PM CDT Performed At: 01 [facility] [place] [address] [id number] Kellie Brown MD Ph:[phone] Performed At: [address] [id number] Kellie Brown MD Ph:[phone] Anca Gerard DO LABORATORY [facility] ([facility]) [facility] [place] [address], [place] * MISCELLANEOUS SEND OUT (09/27/2023 2:30 PM CDT) TEST NAME Protein C antigen 10/01/2023 8:43 AM CDT [facility] SOURCE blood 10/01/2023 8:43 AM CDT [facility] PERFORMING LAB [facility] 10/01/2023 8:43 AM CDT [facility] REFERRAL LAB TEST # [id number] 10/01/2023 8:43 AM CDT [facility] IS THIS A [facility] TEST? Yes, See [facility] Miscellaneous Sendout result 10/01/2023 8:43 AM CDT [facility] Other (Other) Non-Blood / Unknown 09/27/2023 2:30 PM CDT 09/30/2023 8:53 AM CDT Anca Gerard DO SEND OUTS [facility] [address] [place] [address], [place] * XR MAMMO BILAT SCREENING (03/24/2019 12:00 AM CDT) Anatomical Region Laterality Modality BREASTS, Breast Left, Breast Right Bilateral Mammography Anca Gerard DO MAMMO * SCAN-COLONOSCOPY (03/03/2015 12:00 AM CDT) Scanner OTHER from Last 3 Months or Most Recently Relevant to Health Maintenance Advance Directives * Full Code (Latest Code Status on File) Date Activated Date Inactivated Comments 02/15/2017 10:56 AM 02/15/2017 6:20 PM Question Answer Comments Code Status Discussion: Discussed * Full Code Date Activated Date Inactivated Comments 02/15/2017 7:06 AM 02/15/2017 10:56 AM Question Answer Comments Code Status Discussion: Discussed * Full Code Date Activated Date Inactivated Comments 01/06/2016 9:13 AM 01/06/2016 4:13 PM * Full Code Date Activated Date Inactivated Comments 01/06/2016 6:16 AM 01/06/2016 9:13 AM * Full Code Date Activated Date Inactivated Comments 06/12/2013 5:21 AM 06/15/2013 4:08 PM Care Teams Bindery Chief Relationship Specialty Start Date End Date Anca Gerard DO [facility] [place] [address] PCP - General Family Practice 01/08/17
== END 2023-11-19 09:47 | disposition home or self-care (01) ==
LOC: INJ CL 09:47
PROVIDERS: PCP Family Medicine; Visit Provider Family Medicine
DX: M25.551 Pain in right hip (principal); M16.11 Unilateral primary osteoarthritis, right hip; M25.541 Pain in joints of right hand
CPT/HCPCS: 20550; 20610; 77002; J0702; J2405; Q9966

== ENCOUNTER 2024-08-21 08:22 | Outpatient (CLI) | payer OTHER, SELFPAY | END 2024-08-21 08:23 | disposition home or self-care (01) | LOC: AMB 08-24 09:48 | PROVIDERS: PCP Family Medicine; Visit Provider Internal Medicine | DX: S19.9XXA Unspecified injury of neck, initial encounter (principal); V49.40XA Driver injured in collision with unspecified motor vehicles in traffic accident, initial encounter; Y92.410 Unspecified street and highway as the place of occurrence of the external cause | CPT/HCPCS: A0425; A0429 ==

== ENCOUNTER 2024-08-21 09:15 | Emergency (ER) | payer OTHER, SELFPAY ==
--- OUTSIDE RECORDS SUMMARY | 2024-08-21 09:17 | XMS_ITS | Clinical Summary ---
Author Organization [facility] Address [address] [place] [address] Care Team Providers Care Tire Recapper Name Role Phone Anca Gerard DO Primary Care Provider [phone] Allergies Active Allergy Reactions Criticality Noted Date Comments Adhesive Tape-Silicones Rash 02/14/2017 Celecoxib Edema 02/19/2024 hand swelling. Diazepam Agitation 06/12/2013 Erythromycin GI Upset 08/22/2006 Hydromorphone Confusion 02/15/2017 Very sedating Lidocaine Itching Low 11/13/2018 Local swelling and itching after injection of lidocaine for local anesthetic for procedure. Nitrofurantoin Nausea And Vomiting 09/21/2016 Penicillins Hives 08/22/2006 Tolerated keflex Oxycodone-Acetaminophen Nausea And Vomiting Tramadol Nausea And Vomiting 06/12/2013 Trazodone Insomnia 06/12/2013 Sertraline Nausea Only 08/22/2006 Medications cyclobenzaprine (FLEXERIL) 10 mg tabletIndication s:Lumbosacral spondylosis without myelopathy Take 1 tablet by mouth 3 times daily if needed for Muscle Spasm. 60 tablet 019 Active calcium carbonate-vitami n D3, 600 mg-400 unit, 600 mg(1,500mg) -400 unit tablet Take 1 tablet by mouth 2 times daily with meals. 200 tablet 4 019 Active CaneIndications: Lumbar radicular pain,Chronic pain of right knee Cane for supportive walking, length of use 99 months 1 Device 019 Active nebulizer accessories kitIndications:E xacerbation of asthma, unspecified asthma severity, unspecified whether persistent (HC) For home use. Length of need: as needed going forward 1 Kit 020 Active ammonium lactate 12% topical (LACHYDRIN) 12 % lotionIndication s:Dry skin Apply topically to affected area(s) 2 times daily. 450 g 020 Active ondansetron (Zofran ODT) 4 mg disintegrating tabletIndication s:Nausea Place 1 Tablet (4 mg) on the tongue every 8 hours if needed for Nausea/Vomiting. 30 Tablet 021 Active estradioL (Estrace) 0.01% (0.1 mg/g) vaginal creamIndications :Recurrent UTI (urinary tract infection) Insert 0.5 g into the vagina at bedtime. Insert 0.5g of cream into vaginal introitus at bedtime nightly for two weeks followed by twice weekly 42.5 g 1 022 Active durable medical equipment (DME)Indications :Pain of meniscus of right knee,Effusion of right knee Reddie Brashalini, [phone] 1 Each 023 Active magnesium oxide,aspartate, citr 400 mg magnesium cap Take 400 mg by mouth. 0 023 Active durable medical equipment (DME)Indications :Plantar fasciitis of left foot,Chronic pain of left heel Airselect, Standard, medium 01EF-M Length of use: 99 months 0 023 Active LORazepam (ATIVAN) 1 mg tabletIndication s:Anxiety due to invasive procedure Take 1 Tablet (1 mg) by mouth one time for 1 dose. 1 Tablet 023 Active albuterol HFA (Ventolin HFA) 90 mcg/actuation inhalerIndicatio ns:Mild intermittent asthma without complication (HC) Inhale 2 Puffs by mouth 4 times daily if needed for Wheezing. 18 g 1 023 Active albuterol (PROVENTIL) 0.083 % neb solutionIndicati ons:Wheeze Inhale 3 mL (2.5 mg) via a nebulizer every 4 hours if needed for Wheezing. 360 mL 1 023 Active benzonatate (Tessalon Perles) 100 mg capsuleIndicatio ns:Bronchitis with bronchospasm Take 1 Capsule (100 mg) by mouth 3 times daily if needed for Cough. 30 Capsule 024 Active polyethylene glycoL (MIRALAX) 17 gram/scoop powderIndication s:Chronic constipation Mix 1 scoop (17 g) in liquid then take by mouth once daily if needed for Constipation. 1530 g 1 024 Active omeprazole (PRILOSEC) 20 mg Delayed-Release capsuleIndicatio ns:Gastritis, presence of bleeding unspecified, unspecified chronicity, unspecified gastritis type Take 1 Capsule (20 mg) by mouth two times daily before meals. 180 Capsule 1 Active blood-glucose meterIndications :New onset type 2 diabetes mellitus (HC) Dispense meter covered by pts insurance. 1 Each 024 Active blood sugar diagnostic (Blood Glucose Test) stripIndications :New onset type 2 diabetes mellitus (HC) Test 2 times per day. 100 Each 12 024 Active lancetsIndicatio ns:New onset type 2 diabetes mellitus (HC) As directed. Test 2 times per day. 100 Each 12 024 Active diclofenac 1.3 % (FLECTOR) 1.3 % patchIndications :Chronic pain disorder,Small fiber neuropathy,Right hip impingement syndrome,Chronic right hip pain Apply 1 Patch on dry, clean, hairless skin 2 times daily if needed for Pain. Patient failed injection, naproxen and meloxicam with GASTROINTESTINAL bleed. SMK 60 Patch 11 024 Active cholecalciferol (VITAMIN D3) 2,000 unit capsuleIndicatio ns:Lumbar radicular pain TAKE ONE CAPSULE BY MOUTH ONE TIME DAILY 90 Capsule 1 024 Active diclofenac (VOLTAREN) 75 mg delayed-release tabletIndication s:Chronic pain disorder,DDD (degenerative disc disease), lumbar,Lumbar radicular pain Take 1 Tablet (75 mg) by mouth two times daily with meals. 120 Tablet 2 024 Active pregabalin (LYRICA) 300 mg capsuleIndicatio ns:Small fiber neuropathy TAKE ONE CAPSULE BY MOUTH TWICE DAILY 60 Capsule 5 024 Active clotrimazole (LOTRIMIN) 1 % creamIndications :Yeast infection of the skin APPLY TO AFFECTED AREAS BY TOPICAL ROUTE TWICE DAILY NEEDED 135 g 024 Active cyanocobalamin (VITAMIN B12) 1,000 mcg tabletIndication s:Small fiber neuropathy TAKE ONE TABLET BY MOUTH ONE TIME DAILY 90 Tablet 2 025 Active Ozempic 2 mg/dose (8 mg/3 mL) subcutaneous penIndications:N ew onset type 2 diabetes mellitus (HC) Inject 2 mg subcutaneous once weekly. 3 mL 025 Active tiZANidine (ZANAFLEX) 4 mg tabletIndication s:Lumbar radicular pain TAKE ONE TABLET BY MOUTH EVERY SIX HOURS NEEDED FOR MUSCLE SPASM 60 Tablet 025 Active HYDROcodone-acet aminophen (5-325 mg/tablet)Indica tions:DDD (degenerative disc disease), lumbar,Lumbosacr al spondylosis without myelopathy,Chron ic pain disorder,Control led substance agreement signed Take 1 Tablet by mouth 3 times daily if needed for Pain. 90 Tablet 025 Active HYDROcodone-acet aminophen (5-325 mg/tablet)Indica tions:DDD (degenerative disc disease), lumbar,Lumbosacr al spondylosis without myelopathy,Chron ic pain disorder,Control led substance agreement signed Take 1 Tablet by mouth 3 times daily if needed for Pain. 90 Tablet 024 08/04 Discontinued semaglutide (Ozempic) 2 mg/dose (8 mg/3 mL) subcutaneous penIndications:N ew onset type 2 diabetes mellitus (HC) Inject 2 mg subcutaneous once weekly. 3 mL 3 024 08/04 Discontinued tiZANidine (ZANAFLEX) 4 mg tabletIndication s:Lumbar radicular pain TAKE ONE TABLET BY MOUTH EVERY SIX HOURS NEEDED FOR MUSCLE SPASM 60 Tablet 025 08/04 Discontinued metroNIDAZOLE (FLAGYL) 500 mg tabletIndication s:Acute diverticulitis Take 1 Tablet (500 mg) by mouth two times daily for 7 days. 14 Tablet 025 08/11 ciprofloxacin (Cipro) 500 mg tabletIndication s:Acute diverticulitis,C ellulitis of left external ear Take 1 Tablet (500 mg) by mouth two times daily before meals for 7 days. 14 Tablet 025 08/11 Active Problems Problem Noted Date Diagnosed Date Acute gastric ulcer without hemorrhage or perfor ation 03/17/2019 Overview (03/17/2019): EGD 03/2019 gastric ulcer due to Nsdaids, No repeat EGD needed Alcohol use disorder, mild, in sustained remissi on 11/13/2018 Chronic bilateral low back pain without sciatica 11/07/2018 Migraine without aura and wi thout status migrainosus, not intractable 09/17/2018 DDD (degenerative disc disease), lumbar 09/18/19 19 Lumbar spondylosis 09/17/2018 Arthropathy of cervical facet joint 09/17/2018 Controlled substance agreement signed 10/21/2017 Overview (04/28/2018): Prescriber: Dr. Breezy Hodgson, [facility], DO Ok to fill at same amount/dose/frequency in my absence. Controlled substance agreement: 10/21/17 resigned. SPOT REMOVER query on 04/17/18 was acceptable. Last UDS on 10/21/17 status post right hip arthro scopic labral repair with femoral and acetabular osteoplasty procedure on 02/15/[address] Hatch. 02/26/2017 Obesity (BMI 30-39.9) 02/11/2017 Tobacco use disorder 09/23/2016 Small fiber neuropathy 04/05/2016 Overview (04/05/2016): Confirmed on muscle biopsy through [facility]. Incontinence 06/15/2015 Somatization disorder 06/13/2013 Mood disorder due to a general medical condition 06/12/2013 Chronic pain disorder 06/12/2013 Recurrent major depressive disorder, in partial remission 06/12/2013 Adjustment disorder with depressed mood 06/12/19 14 Insomnia 06/12/2013 Plantar fasciitis 06/12/2013 CTS (carpal tunnel syndrome) 06/12/2013 Lumbar facet arthropathy 01/18/2010 Fibromyalgia 01/18/2010 Unspecified asthma(493.90) 08/22/2006 Overview (08/22/2006): Summer Other acne 08/22/2006 Tear of right acetabular labrum Resolved Problems Problem Noted Date Diagnosed Date Resolved Date Abnormal maternal glucose to lerance, complicating , childbirth, or the puerperium, unspecified as to episode of care 08/22/2006 01/15/2015 Encounters Date Type Department Care Team Description 08/21/2024 Travel 08/21/2024 Hospital Encounter [facility] [address] [place] [address] Bonny Emerson MD 08/04/2024 8:10 AM DENTAL ASSISTANT TEACHER Office Visit [facility] [address] [place] [address] Carmela Noonan PA Ear Problem (Left ear pain-got drops back in Dec and it helped but never really totally went away-flying next week-also feeling congested today) 08/04/2024 Travel 08/03/2024 Refill [facility] [address] [place] [address] Anca Gerard DO Refill Request (Ozempic, Tizanidine, Hydrocodone-acetaminop hen) 07/13/2024 Telephone [facility] [address] [facility] [address] [place] [address] Bonny Emerson MD Appointment 06/30/2024 Refill [facility] [address] [place] [address] Anca Gerard DO Refill Request (Cyanocobalamin, Tizanidine) 06/17/2024 10:40 AM DENTAL ASSISTANT TEACHER Office Visit [facility] [address] [place] [address] Breezy Hodgson MD Musculoskeletal Problem (Follow up back and right hip pain ) 06/17/2024 Travel from Last 3 Months Immunizations Immunization Administration Dates Next Due Td (Age >=7 [...] Date Smoking Tobacco: Every Day Cigarettes 1 43.2 Started: 1981 Smokeless Tobacco: Never Tobacco Cessation:Ready to Q uit: No; Counseling Given: No Alcohol Use Standard Drinks/Week Comments Not Currently 0 (1 standard drink = 0.6 oz pur e alcohol) rare PHQ-2 Answer Date Recorded PHQ-2 TOTAL SCORE 1 04/29/2023 Social Connections Answer Date Recorded Do you often feel lonely or isolated from those around you? 0 08/04/2024 Financial Resource Strain Answer Date R ecorded Difficulty of Paying Living Expenses 3 08/04/2024 Difficulty of Paying Living Expenses Not on file 08/04/2024 Food Insecurity Answer Date Recorded Do you worry your food will run out before you are able to buy more? 1 08/04/2024 Transportation Needs Answer Date Record ed Does lack of transportation keep you from medica l appointments? 1 08/04/2024 Does lack of transportation keep you from work, meetings or getting things that you need? 1 08/04/2024 Housing Stability Answer Date Recorded What is your housing situation today? 1 08/04/2024 Utilities Answer Date Recorded Do you have trouble paying f or utilities (for example, heat, electricity, water, phone)? 1 08/04/2024 Comments No Sex and Gender Information Value Date Recorded Sex Assigned at Not on file Legal Sex Female 5:24 AM DENTAL ASSISTANT TEACHER Gender Identity Not on file Sexual Orientation Not on file Occupation Industry Job Start Date Job End Date Not on file Not on file Not on file Not on file Obstetrics History Para Term AB IAB SAB Ectopic Multiple Livin g Live Births 6 5 5 5 Date Outcome GA Total Labor Labor/2nd/3rd Weight Sex Type Anes PTL Linda A1 A5 Name Clin Term Term Term Term Term Last Filed Vital Signs Vital Sign Reading Time Taken Comments Blood Pressure 111/76 08/04/2024 8:16 AM DENTAL ASSISTANT TEACHER Pulse 83 08/04/2024 8:16 AM DENTAL ASSISTANT TEACHER Temperature 36.8 C (98.2 F) 08/04/2024 8:16 AM DENTAL ASSISTANT TEACHER Respiratory Rate 16 04/02/2022 8:52 AM CDT Oxygen Saturation 97% 08/04/2024 8:16 AM DENTAL ASSISTANT TEACHER Inhaled Oxygen Concentration - - Weight 86.2 kg (190 lb) 08/04/2024 8:16 AM DENTAL ASSISTANT TEACHER Height 159 cm (5' 2.6) 08/04/2024 8:16 AM DENTAL ASSISTANT TEACHER Body Mass Index 34.09 08/04/2024 8:16 AM DENTAL ASSISTANT TEACHER Plan of Treatment Health Maintenance Due Date Last Done Comments Tdap 1976 HIV for age 15-65 1980 Hepatitis C screening for ag e 18-79 1983 Hepatitis B series for Diabe celestino (1 of 3 - 19+ 3-dose series) 1984 Pneumococcal series for age 50+ (1 of 2 - PCV) [address] (for lung CA) ag e 50-80 2015 Zoster (shingles) series for age 50+ (1 of 2) 2015 Mammogram for age 45-75 03/24/2020 03/24/20 19, 09/20/2016, 04/01/2015 COVID-19 vaccine series ( season) 2024 Influenza Vaccine (#1) 2024 Depression screening for age 12+ 04/29/2024 04/29/2023, 04/03/2022, 09/25/2021, Additional history exists Colonoscopy through age 75 03/03/2025 03/03/2015 BMI (ht and wt on same day) for age 18+ 08/04/2025 08/04/2024, 04/29/2023, 01/22/2022, Additional history exists Tetanus booster 09/26/2027 09/25/2017, 09/25/2017 Lipids for age 45-75 10/13/2028 10/14/2023, 03/25/2020, 07/30/2018, Additional history exists Medical Devices Implanted Type Area Reservations And Ticketing Agent Device Identifier Shelf Expiration Date Model / Serial / Lot Sling Pelvic Gynecare Retropubic Obturator Laser Cut Contine - [id number] Implanted:Qty: 1 on 01/06/2016 by Michael Castle MD at [facility] [employer] / Uro [id number] / / [id number] Ancr Sut Manuel Ss Knotless - [id number] Implanted:Qty: 1 on 02/15/2017 by Arnaud Hatch MD at [facility] Right: Hip [facility] 01/13/2018 [id number] / / [id number] Ancr Sut Sherylchlock Ss Knotless - [id number] Implanted:Qty: 1 on 02/15/2017 by Arnaud Hatch MD at [facility] Right: Hip [facility] 05/22/2018 [id number] / / [id number] Procedures Procedure Name Priority Date/Time Associated Diagnosis Comments [facility] IMAGE STORAGE Routine 08/20/2024 9:43 AM CDT LIPID PANEL W REFLEX MEASURED LDL Routine 10/14/2023 10:58 AM CDT New onset type 2 diabetes mellitus (HC) XR MAMMO BILAT SCREENING Routine 03/24/2019 12:00 AM CDT Screening mammogram, encounter for SCAN-COLONOSCOPY 03/03/2015 12:0 0 AM CDT from Last 3 Months or Most Recently Relevant to Health Maintenance Results * (ABNORMAL) LIPID PANEL W REFLEX MEASURED LDL (10/14/2023 10:58 AM CDT) CHOLESTEROL,TOTAL 281(H) 100 - 199 mg/dL 10/14/2023 6:24 PM CDT [facility] Comment: Cholesterol, Total Reference Ranges Desirable <200 mg/dL Borderline 200-239 mg/dL High >=240 mg/dL TRIGLYCERIDES 105 <150 mg/dL 10/14/2023 6:24 PM CDT [facility] HDL CHOLESTEROL 56 >40 mg/dL 6:24 PM CDT [facility] NON-HDL CHOLESTEROL 225(H) <145 mg/dl 10/14/2023 6:24 PM CDT [facility] [employer] CHOL/HDL RATIO 5.02(H) <4.50 10/14/2023 6:24 PM CDT [facility] LDL CHOLESTEROL 204(H) <=130 mg/dL 10/14/2023 6:24 PM CDT [facility] VLDL CHOLESTEROL 21 <=30 mg/dL 10/14/2023 6:24 PM CDT [facility] PROVIDER ORDERED STATUS RANDOM 10/14/2023 6:24 PM CDT [facility] Blood BLOOD SPECIMEN / Unknown Butterfly / Unknown 10/14/2023 10:58 AM CDT 10/14/2023 10:58 AM CDT us Anca Elizabeth Detert DO CHEMISTRY Final Resul t [facility] [address] [place] [address], [place] * XR MAMMO BILAT SCREENING (03/24/2019 12:00 AM CDT) Anatomical Region Laterality Modality BREASTS, Breast Left, Breast Right Bilateral Mammography us Anca Elizabeth Detert DO MAMMO Final Resul t * SCAN-COLONOSCOPY (03/03/2015 12:00 AM CDT) us Scanner OTHER Final Result from Last 3 Months or Most Recently Relevant to Health Maintenance Insurance [facility] [place] [id number] [facility] * Guarantor: MARLEN BERNARD Account Type Relation to Patient Date of Phone Billing Address Workers Comp 1965 [address] [facility] [id number] WORK[employer] CHOICE Advance Directives * Full Code (Latest Code [...] 5:21 AM 06/15/2013 4:08 PM Care Teams Tire Recapper Relationship Specialty Start Date End Date Anca Gerard DO [address] [facility] [address] PCP - General Family Practice 01/08/17
--- OUTSIDE RECORDS SUMMARY | 2024-08-21 09:18 | XMS_ITS | Continuity of Care Document ---
Author Organization [facility] Address [address] [place] [address] Phone Care Team Providers Care Surgical Resident Name Role Phone Esperanza Gaming MD Unavailable Unavailable Allergies, Adverse Reactions, Alerts Substance Reaction Status Criticality trazodone Anxiety Active No Information NITROFURANTOIN MACROCRYSTALLINE Vomiting Active No Information nitrofurantoin Vomiting Active No Informatio n erythromycin base Active No Informa tion diazepam Active No Information tramadol Active No Information Penicillins Active No Information Medications Medication Instructions Dosage Effective Dates (start - stop) Status Comments VITAMIN D3 (unknown strength) Not Available - Active VITAMIN B-12 (unknown strength) Not Available - Active TIZANIDINE HCL (unknown strength) Not Available - Active RANITIDINE HCL (unknown strength) Not Available - Active POLYETHYLENE GLYCOL (unknown strength) Not Available - Active ONDANSETRON ODT (unknown strength) Not Available - Active OMEPRAZOLE (unknown strength) Not Available - Active MELOXICAM (unknown strength) Not Available - Active CLOTRIMAZOLE (unknown strength) Not Available - Active PROVENTIL HFA (unknown strength) Not Available - Active VICODIN (unknown strength) Not Available - Active CYCLOBENZAPRINE HCL (unknown strength) Not Available - Active IBUPROFEN (unknown strength) Not Available - Active LYRICA (unknown strength) Not Available - Active CALCIUM CARBONATE/VITAMIN D3 (unknown strength) Not Available - No Longer Active LORAZEPAM (unknown strength) Not Available - No Longer Active Procedures Procedure Date Office/Outpatient Visit,New, Mod 2017 Office/Outpatient Visit,Est, Mod 2017 Office/Outpatient Visit,Est, Mod 2013 Office consultation, moderate Dec-07-200 9 Results Test Name Date and Time Measure Units Reference Range Abnormal Flag Status Comments Panel Description: Epidural Steroid Cervical/Thoracic - Nonparticulate (EPINonPartCervThor) Unknown EPINonPartCervThor 18 18:27:29 (See Attached Document) Unknown (See Attached Document) Panel Description: Epidural Steroid Cervical/Thoracic - Nonparticulate (EPINonPartCervThor) Unknown Image Epidural Steroid Cervical/T horacic - N Advance Directives Directive Yes / No Effective Date File Name No Information Encounters Encounter Description Practice Location Reason(s) For Visit Diagnoses Date Provider Providers Copied on Encounter Office/Outpat ient Visit,New, Mod [facility], [address], [place], [place], [id number], [place] tel:[phone] [facility] Cervicalgia 2-201 8 Mehbod Amir. [facility], [address] [place] [address], [place], [id number] , [place]. tel:[phone] Referring Provider: Anca Garcia, [address], [address]. tel:[phone] Office/Outpat ient Visit,Est, Mod Z [facility], [address] [place], [place] [address] [place] [address], [address], [place] tel:[phone] [facility] Anxiety 4 Mehbod Amir. [facility] [place], [address], [place], [place], [id number] , [place]. tel:[phone] Referring Provider: Dafne Flores, [facility] [address] [place], [address]. tel:[phone] Office consultation, moderate Z [facility] [place], [address] [place], [place] [address] [address] [place] [address], [address], [place] tel:[phone] [facility] No Information 9 Mehbod Amir. [facility] [place], [address], [place], [id number] , [place]. tel:[phone] Referring Provider: Dafne Flores, [facility] [address] [place], [address]. tel:[phone] Family History Family Member Type Diagnosis Age At Onset Problem (finding) Problem (finding) Problem (finding) Problem (finding) Problem (finding) Problem (finding) Problem (finding) Payers Payer name Insurance type Covered green party ID Authoriza tion(s) No Information Social History Type Description Quantity Date Captured Comments Alcohol Use Details No Caffeine Use Details Tobacco Use Status Moderate cigarette smoker (10-19 cigs/day) Smoking Status Heavy tobacco smoker Smoking Tobacco Use Details Cigarette: No Details Available Cigarette: 0.5 Packs per day Non-Smoking Tobacco Use Details cigarettes: Years Used 25 cigarettes: Pack Year: 250 Sex Female Vital Signs Date / Time: Height Weight BMI Pulse Rate Blood Pressure Temperature Respiratory Rate Body Surface Area Head Circumference Head Circ. Percentile Wt./[place]frey. Percentile BMI percentile Pulse Ox Inhaled Ox 11:06 AM 63.50 in 97.069 kg (214.00 lbs) 37.3 1 kg/m eter (2) 82 /min 114/78 mm[Hg] Chief Complaint And Reason For Visit No Information Reason For Referral Reason For Referral No Information History Of Present Illness Encounter Date Complaint History Of Prese nt Illness No Information Functional Status Date Functional Assessmen t No Information Instructions Date Instruction Additional Infor mation No Information Assessments Type Assessment Date No Information Patient Care Teams Name Effective Dates (start - stop) Status Members No Information
--- OUTSIDE RECORDS SUMMARY | 2024-08-21 09:18 | XMS_ITS | Clinical Summary ---
Author Organization [facility] Address [address] [facility] [place] [address] Care Team Providers Care Object Oriented Developer Name Role Phone Dafne Michel MD Primary Care Provider Suzanna lable Allergies Active Allergy Reactions Criticality Noted Date Comments Diazepam 06/12/2013 Other reaction(s): Agitation, Diazepam Erythromycin Nausea High 12/14/2010 Hydromorphone 02/15/2017 Other reaction(s): Confusion Very sedating Nitrofurantoin Nausea and Vomiting 09/21/2016 Other reaction(s): Nitrofurantoin Oxycodone-Acetaminophen Nausea and Vomiting 02/15/2017 Penicillins Hives 12/14/2010 Sertraline Nausea 08/22/2006 Other reaction(s): Sertraline Tramadol Nausea and Vomiting High 06/12/2013 Other reaction(s): ILL LIKE DRINKING NIKKIE Trazodone 06/12/2013 Other reaction(s): Insomnia, Trazodone Medications buPROPion (WELLBUTRIN) 100 MG tablet Take 100 mg by mouth 2 times daily. 1 Active hydrocodone-mira taminophen (VICODIN) 5-500 MG per tablet Take 1 tablet by mouth every 6 hours as needed. Usually just at night Active cyclobenzaprine (FLEXERIL) 10 MG tablet Take 10 mg by mouth 3 times daily as needed. Muscle spasms Active ibuprofen (ADVIL,MOTRIN) 800 MG tablet Take 800 mg by mouth every 8 hours as needed. Usually bid Active pseudoephedrine (SUDAFED) 30 MG tablet Take 30 mg by mouth as needed. For ear fluid Active albuterol (PROVENTIL) (2.5 MG/3ML) 0.083% neb solution Inhale 2.5 mg into the lungs 8 Active albuterol (PROAIR HFA/PROVENTIL HFA/VENTOLIN HFA) 108 (90 Base) MCG/ACT inhaler Four Times Daily as needed 6 Active calcium carbonate 600 mg-vitamin D 400 units (CALTRATE) 600-400 MG-UNIT per tablet Take 1 tablet by mouth 9 Active cephALEXin (KEFLEX) 500 MG capsule 0 9 Active clotrimazole (LOTRIMIN) 1 % external cream 7 Active cyanocobalamin (VITAMIN B-12) 1000 MCG tablet Take 1,000 mcg by mouth 8 Active meloxicam (MOBIC) 15 MG tablet Take 15 mg by mouth 9 Active ipratropium - albuterol 0.5 mg/2.5 mg/3 mL (DUONEB) 0.5-2.5 (3) MG/3ML neb solution Four Times Daily as needed 9 Active nystatin (MYCOSTATIN) 524319 UNIT/GM external powder Apply 1 strip topically 9 Active omeprazole (PRILOSEC) [address] capsule 1 9 Active ondansetron (ZOFRAN ODT) [address] 4 mg under the tongue 7 Active polyethylene glycol (MIRALAX/GLYCOL AX) powder 8 Active pregabalin (LYRICA) 150 MG capsule Take 150 mg by mouth 6 Active ranitidine (ZANTAC) 150 MG tablet Take 150 mg by mouth 6 Active tiZANidine (ZANAFLEX) 4 MG tablet TAKE ONE TABLET BY MOUTH EVERY SIX HOURS NEEDED FOR MUSCLE SPASM 9 Active Active Problems No known active problems Family History Medical History Relation Comments Heart Disease Father Hypertension Father Depression Mother Hypertension Mother Stomach Problem Mother Relation Status Comments Father Mother Social History Tobacco Use Types Packs/Day Years Used Date Smoking Tobacco: Light Smoker Cigarettes 0.5 43 Started: 09/04/1981 Smokeless Tobacco: Current Tobacco Cessation:Ready to Q uit: Yes Alcohol Use Standard Drinks/Week Comments Not Currently 0 (1 standard drink = 0.6 oz pur e alcohol) seldom PHQ-2 Answer Date Recorded PHQ-2 Score 4 09/09/2018 Comments No Sex and Gender Information Value Date Recorded Sex Assigned at Not on file Legal Sex Female 4:12 AM [employer] Gender Identity Not on file Sexual Orientation Not on file Last Filed Vital Signs Vital Sign Reading Time Taken Comments Blood Pressure 142/90 12/14/2010 10:24 AM CDT Pulse 68 12/14/2010 10:24 AM CDT Temperature 36 C (96.8 F) 12/14/2010 10:24 AM CDT Respiratory Rate - - Oxygen Saturation - - Inhaled Oxygen Concentration - - Weight 96.6 kg (213 lb) 12/14/2010 10:24 AM CDT Height 161.3 cm (5' 3.5) 12/14/2010 10:24 AM CD T Body Mass Index 37.14 12/14/2010 10:24 AM CDT Plan of Treatment Not on file Insurance [facility] [employer] CHOICE Care Teams Object Oriented Developer Relationship Specialty Start Date End Date Dafne Michel MD PCP - General Family Practice 07/16/13
[2024-08-21 09:19] VITALS: BP 157/104; PULSE 83; RESP 18; TEMP 36.6; O2SAT 94; BMI 33.1
--- NOTE | 2024-08-21 09:31 | CRLHL7_ITS ---
For Patients: As a result of the Century Cures Act, medical imaging exams and procedure reports are released immediately into your electronic medical record. You may view this report before your referring provider. If you have questions, please contact your health care provider. INDICATION: Injury COMPARISON: None TECHNIQUE: : CT examination of the chest was performed without contrast.Thin axial sections were obtained from the thoracic inlet through the lung bases. Please note that all CT scans at this facility use dose modulation, iterative reconstruction, and/or weight-based dosing when appropriate to reduce radiation dose to as low as reasonably achievable. FINDINGS: : HEART and MEDIASTINUM: The heart size is normal. There is no mediastinal or hilar adenopathy or mass. There is no pericardial effusion.Atherosclerotic vascular calcifications. LUNGS and PLEURAL SPACES: The lungs show no focal consolidation or mass. The airways appear normal.There is no pleural effusion, pneumothorax or pleural based mass. VISUALIZED UPPER ABDOMEN: The limited visualized upper abdominal structures appear normal. OSSEOUS STRUCTURES: Age-appropriate appearance. No acute fracture or destructive process.Degenerative changes TUBES and LINES: None. IMPRESSION: No evidence of active pulmonary disease. No posttraumatic findings. Please note that all CT scans at this facility use dose modulation, iterative reconstruction, and/or weight-based dosing when appropriate to reduce radiation dose to as low as reasonably achievable. Dictated by Salvador Stinson MD @ 08/27/2024 8:11:30 AM (Electronically Signed)
--- NOTE | 2024-08-21 09:31 | CRLHL7_ITS ---
For Patients: As a result of the Century Cures Act, medical imaging exams and procedure reports are released immediately into your electronic medical record. You may view this report before your referring provider. If you have questions, please contact your health care provider. INDICATION: Injury COMPARISON: None TECHNIQUE: CT examination of the head was performed as axial sections without intravenous contrast. Images were obtained from the vertex of the skull through the skull base. Please note that all CT scans at this facility use dose modulation, iterative reconstruction, and/or weight-based dosing when appropriate to reduce radiation dose to as low as reasonably achievable. FINDINGS: The brain shows no sign of mass lesion, mass effect, hemorrhage, or edema. The ventricles and sulci are normal in appearance for the patient`s age. The visualized portions of the orbits are normal in appearance. The osseous structures are normal in their appearance with no sign of abnormality in the skull base or calvarium. IMPRESSION: Normal unenhanced head CT. Please note that all CT scans at this facility use dose modulation, iterative reconstruction, and/or weight-based dosing when appropriate to reduce radiation dose to as low as reasonably achievable. Dictated by Salvador Stinson MD @ 08/21/2024 10:27:54 AM (Electronically Signed)
--- NOTE | 2024-08-21 09:31 | CRLHL7_ITS ---
For Patients: As a result of the Cures Act, medical imaging exams and procedure reports are released immediately into your electronic medical record. You may view this report before your referring provider. If you have questions, please contact your health care provider. INDICATION: Injury COMPARISON: None TECHNIQUE: CT examination of the cervical spine is performed without contrast using spiral technique. Thin axial, sagittal and coronal reconstructions were made. Please note that all CT scans at this facility use dose modulation, iterative reconstruction, and/or weight-based dosing when appropriate to reduce radiation dose to as low as reasonably achievable. FINDINGS: : There is straightening of the spine which is usually due to muscle spasm or positioning. There is no catherine malalignment. There are moderate scratch degenerative changes. There is no acute fracture, dislocation or destructive process. IMPRESSION: Straightening. Degenerative changes. No visible acute fracture, dislocation or destructive process. Please note that all CT scans at this facility use dose modulation, iterative reconstruction, and/or weight-based dosing when appropriate to reduce radiation dose to as low as reasonably achievable. Dictated by Salvador Stinson MD @ 08/21/2024 10:25:53 AM (Electronically Signed)
--- NOTE | 2024-08-21 09:31 | CRLHL7_ITS ---
For Patients: As a result of the Century Cures Act, medical imaging exams and procedure reports are released immediately into your electronic medical record. You may view this report before your referring provider. If you have questions, please contact your health care provider. Indication: Injury, left hip pain. Technique: AP pelvis and 2 view(s) of the left hip. Comparison: None available. Findings: Alignment is anatomic and hip joint spaces are maintained. No acute fracture is identified. Mild degenerative changes of the sacroiliac joints and moderate degenerative changes of the pubic symphysis. No findings to suggest femoral head osteonecrosis. Small marginal osteophytes involving the left hip. Impression: 1. No acute osseous abnormality identified. 2. Mild left hip osteoarthritis. Dictated by Nel Alves MD @ 08/21/2024 10:09:53 AM (Electronically Signed)
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
--- OUTSIDE RECORDS SUMMARY | 2024-08-21 09:49 | XMS_ITS | Clinical Summary ---
Author Organization [employer] [facility] Address [address] [place] [address] Care Team Providers Care Director Digital Strategy Name Role Phone Anca Gerard DO Primary Care Provider [phone] Allergies Active Allergy Reactions Criticality Noted Date [...] knee,Effusion of right knee Reddie Brashalini, [phone] 1 Each 023 Active magnesium oxide,aspartate, citr [...] 10/21/2017 Overview (04/28/2018): Prescriber: Dr. Breezy Hodgson, [facility], DO Ok to fill at same amount/dose/frequency in my absence. Controlled substance agreement: 10/21/17 resigned. FINANCIAL RECRUITER query on 04/17/18 was acceptable. 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 Office Visit [facility] [place] [address] [place] [address] Carmela Noonan PA Ear Problem (Left ear pain-got drops back in Dec and it helped but never really totally went away-flying next week-also feeling congested today) 08/04/2024 Travel 08/03/2024 Refill [facility] [place] [address] [place] [address] Anca Gerard DO Refill Request (Ozempic, Tizanidine, Hydrocodone-acetaminop hen) 07/13/2024 Telephone [facility] [address] [facility] [address] [place] [address] Bonny Emerson MD Appointment 06/30/2024 Refill [facility] [place] [address] [place] [address] Anca Gerard DO Refill Request (Cyanocobalamin, Tizanidine) 06/17/2024 10:40 AM ELECTRICAL MAINTENANCE MAN Office Visit [facility] [place] [address] [place] [address] Breezy Hodgson MD Musculoskeletal Problem (Follow up [...] on file Legal Sex Female 5:24 AM ELECTRICAL MAINTENANCE MAN Gender Identity Not on file Sexual Orientation [...] Comments Blood Pressure 111/76 08/04/2024 8:16 AM ELECTRICAL MAINTENANCE MAN Pulse 83 08/04/2024 8:16 AM ELECTRICAL MAINTENANCE MAN Temperature 36.8 C (98.2 F) 08/04/2024 8:16 AM ELECTRICAL MAINTENANCE MAN Respiratory Rate 16 04/02/2022 8:52 AM CDT Oxygen Saturation 97% 08/04/2024 8:16 AM ELECTRICAL MAINTENANCE MAN Inhaled Oxygen Concentration - - Weight 86.2 kg (190 lb) 08/04/2024 8:16 AM ELECTRICAL MAINTENANCE MAN Height 159 cm (5' 2.6) 08/04/2024 8:16 AM ELECTRICAL MAINTENANCE MAN Body Mass Index 34.09 08/04/2024 8:16 AM ELECTRICAL MAINTENANCE MAN Plan of Treatment Health Maintenance Due Date [...] history exists Medical Devices Implanted Type Area Knife Setter Device Identifier Shelf Expiration Date Model / Serial / Lot Sling Pelvic Gynecare Retropubic Obturator Laser Cut Contine - [id number] Implanted:Qty: 1 on 01/06/2016 by Michael Castle MD at [facility] [employer] / Uro [id number] / / [id number] Ancr Sut Manuel Ss Knotless - [id number] Implanted:Qty: 1 on 02/15/2017 by Arnaud Hatch MD at [facility] Right: Hip [employer] 01/13/2018 [id number] / / [id number] Ancr Sut Sherylchlock Ss Knotless - [id number] Implanted:Qty: 1 on 02/15/2017 by Arnaud Hatch MD at [facility] Right: Hip [employer] 05/22/2018 [id number] / / [id number] Procedures Procedure Name Priority Date/Time Associated Diagnosis Comments [facility] IMAGE STORAGE Routine 08/20/2024 9:43 AM [...] - 199 mg/dL 10/14/2023 6:24 PM CDT [facility] Command Information [facility] Comment: Cholesterol, Total Reference Ranges Desirable <200 mg/dL Borderline 200-239 mg/dL High >=240 mg/dL TRIGLYCERIDES 105 <150 mg/dL 10/14/2023 6:24 PM CDT [facility] HDL CHOLESTEROL 56 >40 mg/dL 6:24 PM CDT [facility] NON-HDL CHOLESTEROL 225(H) <145 mg/dl 10/14/2023 6:24 PM CDT [facility] [employer] CHOL/HDL RATIO 5.02(H) <4.50 10/14/2023 6:24 PM CDT [facility] LDL CHOLESTEROL 204(H) <=130 mg/dL 10/14/2023 6:24 PM CDT [facility] VLDL CHOLESTEROL 21 <=30 mg/dL 10/14/2023 6:24 PM CDT [facility] PROVIDER ORDERED STATUS RANDOM 10/14/2023 6:24 PM CDT [facility] Blood BLOOD SPECIMEN / Unknown Butterfly / Unknown 10/14/2023 10:58 AM CDT 10/14/2023 10:58 AM CDT us Anca Elizabeth Detert DO CHEMISTRY Final Resul t [facility] [address] [place] [address], [place] * XR MAMMO BILAT SCREENING (03/24/2019 12:00 AM CDT) Anatomical Region Laterality Modality BREASTS, Breast Left, Breast Right Bilateral Mammography us Anca Elizabeth Detert DO MAMMO Final Resul t * SCAN-COLONOSCOPY (03/03/2015 12:00 AM CDT) us Scanner OTHER Final Result from Last 3 Months or Most Recently Relevant to Health Maintenance Insurance [facility] [place] [id number] [facility] * Guarantor: MARLEN BERNARD Account Type Relation to Patient Date of Phone Billing Address Workers Comp 1965 [address] [place] [facility] [place] [address] WORKERS COMP MEDICA CHOICE Advance Directives * [...] 5:21 AM 06/15/2013 4:08 PM Care Teams Director Digital Strategy Relationship Specialty Start Date End Date Anca Gerard DO [address] [place] [facility] [place] [address] PCP - General Family Practice 01/08/17
--- OUTSIDE RECORDS SUMMARY | 2024-08-21 09:49 | XMS_ITS | Clinical Summary ---
Author Organization [facility] Address [address] [facility] 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
--- OUTSIDE RECORDS SUMMARY | 2024-08-21 09:49 | XMS_ITS | Continuity of Care Document ---
Author Organization [facility] Address [address] [place] [address] Phone Care Team Providers Care District Court Justice Name Role Phone Esperanza Gaming MD Unavailable [...] ient Visit,New, Mod [facility], [address], [place], [place], [id number], [place] tel:[phone] [facility] Cervicalgia [phone] Mehbod Amir. [facility], [address] [place] [address], [place], [id number] , [place]. tel:[phone] Referring Provider: Anca Garcia, [address], [address]. tel:[phone] Office/Outpat ient Visit,Est, Mod Z [facility], [address] [place], [place] [address] [place] [address], [address], [place] tel:[phone] [facility] Anxiety 4 Mehbod Amir. [facility] [place], [address], [place], [place], [id number] , [place]. tel:[phone] Referring Provider: Dafne Flores, [facility] [address] [place], [address]. tel:[phone] Office consultation, moderate Z [facility] [place], [address] [place], [place] [address] [address] [place] [address], [address], [place] tel:[phone] [facility] No Information 9 Mehbod Amir. [facility] [place], [address], [place], [id number] , [place]. tel:[phone] Referring Provider: Dafne Flores, [facility] [address] [place], [address]. tel:[phone] Family History Family Member Type Diagnosis Age [...]
[2024-08-21 10:18] VITALS: BP 133/94; PULSE 83; RESP 16; O2SAT 94
== END 2024-08-21 10:47 | disposition home or self-care (01) ==
PROVIDERS: Emergency Provider Internal Medicine; PCP Family Medicine
DX: M54.2 Cervicalgia (principal); M25.552 Pain in left hip; V43.52XA Car driver injured in collision with other type car in traffic accident, initial encounter
CPT/HCPCS: 70450; 71250; 72125; 73502; 99283; 99284

== ENCOUNTER 2024-10-18 12:41 | Outpatient (CLI) | payer OTHER, SELFPAY | END 2024-10-18 12:42 | disposition home or self-care (01) | LOC: NFLDREF 10-22 14:53 | PROVIDERS: PCP Family Medicine; Referring Provider Family Medicine; Visit Provider Nurse Practitioner Family | DX: N30.00 Acute cystitis without hematuria (principal); B96.20 Unspecified Escherichia coli [E. coli] as the cause of diseases classified elsewhere | CPT/HCPCS: 87086 ==

== ENCOUNTER 2025-01-14 15:16 | Outpatient (CLI) | payer OTHER, SELFPAY ==
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
== END 2025-01-14 15:17 | disposition home or self-care (01) ==
LOC: MRI 15:18
PROVIDERS: PCP Family Medicine; Visit Provider Family Medicine
DX: M47.812 Spondylosis without myelopathy or radiculopathy, cervical region (principal); M50.21 Other cervical disc displacement, high cervical region; M50.221 Other cervical disc displacement at C4-C5 level; M50.222 Other cervical disc displacement at C5-C6 level; M48.02 Spinal stenosis, cervical region; S13.4XXS Sprain of ligaments of cervical spine, sequela; V89.2XXD Person injured in unspecified motor-vehicle accident, traffic, subsequent encounter
CPT/HCPCS: 72141

== ENCOUNTER 2025-02-08 13:00 | Outpatient (RCR) | payer OTHER, SELFPAY | END 2025-05-24 10:15 | disposition home or self-care (01) | PROVIDERS: PCP Family Medicine; Visit Provider Student in an Organized Health Care Education/Training Program | DX: M25.512 Pain in left shoulder (principal); M54.2 Cervicalgia; G44.86 Cervicogenic headache; S13.4XXS Sprain of ligaments of cervical spine, sequela; G44.221 Chronic tension-type headache, intractable; M99.01 Segmental and somatic dysfunction of cervical region; Z51.89 Encounter for other specified aftercare | CPT/HCPCS: 95992; 97110; 97112; 97140; 97161; 97162 ==

== ENCOUNTER 2025-02-10 10:14 | Outpatient (CLI) | payer OTHER, SELFPAY ==
--- NOTE | 2025-02-10 10:15 | CRLHL7_ITS ---
For Patients: As a result of the Century Cures Act, medical imaging exams and procedure reports are released immediately into your electronic medical record. You may view this report before your referring provider. If you have questions, please contact your health care provider. Indication: Chronic right hip pain Procedure : Informed consent was obtained. The site was marked. Time-out was performed. The skin of the right hip was cleansed with ChloraPrep. A sterile drape was placed. 8 cc of 1 percent lidocaine was administered for superficial anesthesia. Subsequently a 22 gauge spinal needle was introduced into the right hip joint under intermittent fluoroscopic guidance. Injection of 2 cc nonionic Omnipaque 240 contrast confirmed intra-articular location. Subsequently 11 cc of dilute gadolinium were injected. The needle was removed and hemostasis achieved with direct pressure. A dressing was placed. The patient tolerated the procedure well without immediate complication and was immediately sent to MRI for imaging. Total fluoroscopy time 33 seconds. Impression: Successful fluoroscopically guided right hip arthrogram for MRI. Dictated by Benji Vines MD @ 02/10/2025 11:18:34 AM (Electronically Signed)
--- NOTE | 2025-02-10 11:15 | CRLHL7_ITS ---
For Patients: As a result of the 21st Century Cures Act, medical imaging exams and procedure reports are released immediately into your electronic medical record. You may view this report before your referring provider. If you have questions, please contact your health care provider. CLINICAL INDICATION: Chronic hip pain. Prior surgery. COMPARISON IMAGING STUDIES: Fluoroscopic spot film from 02/10/2025. MRI from 04/14/2021. TECHNICAL: MR arthrogram of the right hip with intra-articular contrast. Axial, axial oblique, sagittal and coronal T1 fat sat and PDFS small field of view images of the right hip. Coronal T1 and PDFS large field of view images of the entire pelvis. 1.5 [employer] MR scanner. FINDINGS: RIGHT HIP: Postsurgical changes of proximal femoral osteoplasty. There is no residual femoral head-neck junction osseous bump anterosuperiorly. The alpha angles on the axial oblique images are within normal limits. The femoral head articular surface appears smooth without focal articular cartilage defect. There are findings of prior anterior superior labral repair. The patient may have undergone an acetabular rim resection. The anterior superior acetabular labrum appears attenuated with fraying of residual labral tissue. No change from prior MRI. The superolateral acetabular labrum appears frayed. There is mild chondral labral junction degeneration superior laterally. The acetabular articular cartilage is otherwise maintained. No significant capsular defect. LEFT HIP: Status post proximal femoral osteoplasty. There is likely chondral labral junction degeneration anterosuperiorly. Technique not optimized for evaluation of internal derangement of the left hip. OSSEOUS STRUCTURES: No acute fracture or avascular necrosis. MUSCULOTENDINOUS STRUCTURES AND BURSAE: On the right, tendinosis of the distal gluteus minimus tendon. Tendinosis of the anterior aspect of the distal gluteus medius tendon. Slight peritrochanteric edema. No high-grade gluteal tendon tear. Right common hamstring tendon is intact. There is contrast within the right iliopsoas bursa. No tear of the distal tendon. On the left, slight peritrochanteric edema. No distal gluteal tendon tear. Tendinosis of the left common hamstring tendon. Distal left iliopsoas tendon is intact. OTHER FINDINGS: Advanced arthrosis of the pubic symphysis with parasymphyseal edema which appears increased. Bilateral sacroiliac joint degenerative changes. Degenerative disc and facet joint disease within the lower lumbar spine. INTRAPELVIC CONTENTS: Uterus is absent. There is colonic diverticulosis. IMPRESSION: 1. On the right, status post femoroacetabular impingement surgery. No residual femoral head-neck junction osseous bump anterosuperiorly. No change in attenuation of the anterosuperior acetabular labrum with labral fraying. Mild chondral labral junction degeneration superior laterally. Articular surfaces otherwise maintained. 2. On the right, tendinosis of the distal gluteus minimus and anterior gluteus medius tendon. Mild peritrochanteric edema. No distal gluteal tendon tear. 3. Progressive pubic symphyseal degenerative arthrosis changes with periarticular bone marrow edema. 4. Degenerative changes of the spine and sacroiliac joints. 5. No acute fracture or AVN. Dictated by Alton Bennett MD @ 02/11/2025 7:51:45 AM (Electronically Signed)
== END 2025-02-10 10:15 | disposition home or self-care (01) ==
PROVIDERS: PCP Family Medicine; Visit Provider Family Medicine
DX: M25.551 Pain in right hip (principal); M70.61 Trochanteric bursitis, right hip; M25.851 Other specified joint disorders, right hip
CPT/HCPCS: 27093; 73525; 73722; 77002; A9575; Q9966

== ENCOUNTER 2025-05-13 16:34 | Outpatient (CLI) | payer OTHER, SELFPAY | END 2025-05-13 16:35 | disposition home or self-care (01) | LOC: NFLDREF 05-19 09:10 | PROVIDERS: PCP Family Medicine; Referring Provider Family Medicine; Visit Provider Physician Assistant Surgical | DX: N30.01 Acute cystitis with hematuria (principal) | CPT/HCPCS: 87086 ==